=== PATIENT | female | born 1950 | race Caucasian/White ===

== ENCOUNTER → 2016-05-04 | Outpatient (CLI) | payer BC ==
[~2016-05-04] MED LIST: CALC500C3 PO; CONJ0.3T3 PO; LAMO100T16 PO; MULT-507 PO; PROB1TAB19 PO; SYN125 PO; ZNTT/150 PO
--- NOTE | 2016-05-04 08:41 | Discharge Instructions ---
Discharge Instructions Procedure Procedure Date: May 04, 2016. Reason for visit: Left Calcs. Discharge Discharge Date: May 04, 2016. Discharge Diagnosis: status post breast biopsy Instructions Activity Recommendations: Additional Limitations (see below) Return to School/Work: no limitations Recommended Home Diet: No Limitations Provider Instructions: ACTIVITY RECOMMENDATIONS: * No lifting, pushing, pulling or exercising the affected side for three days. RETURN TO SCHOOL/WORK: * You may return to work/school after the procedure, but do not perform any strenuous activities for 24 to 48 hours. MEDICATIONS: * Tylenol (two 325 mg) every four to six hours if needed for mild pain (if not allergic to Tylenol). DIET: * Resume previous diet. SPECIAL CARE INSTRUCTIONS: * Keep biopsy site dry for 24 hours. May shower after 24 hours, but do not soak (bathe) incision. * May remove Tegaderm (plastic patch) tomorrow AFTER showering. * Leave the steri-strips on for one week. Allow the steri-strips to fall off by themselves. If not off after one week, you may remove them. You may place a Bandaid crosswise over the strips, if desired. * Apply ice 10 minutes on and 10 minutes off as needed. * Wear a bra at bedtime to sleep more comfortably for 2-3 days. * Your referring physician should have the results after approximately 5 to 7 business days. * Call for unusual bleeding, fever, drainage, etc or if you have any questions call during normal business hours or after hours call Dr Guthrie, . FOLLOW UP VISIT: Follow-up with Referring Physician as scheduled. Allergies Coded Allergies: Ether (Verified Allergy, Severe, BLEEDING, 02/17/14) Penicillins (Unverified Allergy, Mild, UNKNOWN, 02/17/14) Alyse Mckeon Recommendations: Call your doctor if: * Temperature above 101 degrees * Pain not relieved by pain medicine ordered * There is increased drainage or redness from any incision * You have any unanswered questions or concerns. Your Doctors Instructions noted above were prepared by provider Maureen Guthrie. Patient Signature Section: Patient Instructions Signature Page Trina Lis Patient (or Guardian) Signature/Date: I have read and understand the instructions given to me by my caregivers. Caregiver/RN/Doctor Signature/Date: The above-named patient and/or guardian has received patient instructions on this date. + Original Patient Signature Page (only) stays with chart. Please make copy for patient.
--- NOTE | 2016-05-04 12:39 | MAMMOGRAPHY REPORT ---
THIS REPORT HAS BEEN AMENDED. STEREOTACTIC GUIDED BIOPSY LEFT BREAST: 05/04/2016 CLINICAL HISTORY: Left lower inner quadrant calcifications. PATIENT CONSENT: The procedure, risks, benefits, and alternatives of stereotactic biopsy with clip p lacement were discussed with the patient, and verbal and written consent was obtained. A timeout wa s performed immediately prior to the procedure. PROCEDURE DESCRIPTION: With stereotactic guidance, aseptic technique, and lidocaine as a local anest hetic (1% lidocaine to anesthetize the skin and 1% lidocaine with epinephrine to anesthetize the jessy per tissues), the area of concern in the left lower inner quadrant (site A) was sampled multiple aki es with a 9-gauge vacuum-assisted biopsy needle (Leanplum). The path of approach was caudocrania l. The specimen radiograph demonstrates calcifications to be present in the samples. A metallic ma rker clip was placed at the biopsy site. This was confirmed on postprocedure mammograms. Direct pr essure was applied at the biopsy site and hemostasis was readily achieved. The patient tolerated th e procedure without complication. She was given wound care instructions. COMPARISON: Comparison is made to exams dated: 04/26/2016 mammogram, 04/14/2015 mammogram, 4 mammogram, 04/04/2013 mammogram, and 03/29/2012 mammogram - [facility]. IMPRESSION: STEREOTACTIC GUIDED BIOPSY Stereotactic biopsy of indeterminate calcifications in the left lower inner quadrant (labeled site " A"), with clip placement. The patient will receive pathology results from her referring physician. Maureen Guthrie M.D. ah/:05/04/2016 09:01:19 Weapons Engineer: Queta Mckenzie, [facility] AMENDMENT: 05/11/2016 Maureen Guthrie M.D. The pathology from stereotactic biopsy 2 of the left breast was reviewed on 05/11/2016. The patholo gy of the left lower inner quadrant calcifications yielded atypical ductal hyperplasia. The patholo gy from the left 3:00 calcifications yielded flat epithelial atypia and atypical lobular hyperplasia . Given the presence of atypia on both specimens, surgical excision is recommended. The physician's office was called to ensure faxed results were received.
--- NOTE | 2016-05-04 12:39 | MAMMOGRAPHY REPORT ---
UNILATERAL LEFT DIGITAL DIAGNOSTIC MAMMOGRAM: 05/04/2016 CLINICAL HISTORY: Status post stereotactic biopsy of left lower inner quadrant and left 3:00 calcifi cations. TECHNIQUE: Postprocedural left CC and LM views were obtained. COMPARISON: Comparison is made to exams dated: 04/26/2016 mammogram, 04/18/2016 mammogram, 04/14/20 15 mammogram, 04/11/2014 mammogram, 04/04/2013 mammogram, and 03/29/2012 mammogram - [facility]. BREAST COMPOSITION: The tissue of the left breast is heterogeneously dense, which may obscure small masses. FINDINGS: A new biopsy marker clip is seen within the left 9:00 breast posteriorly, and a new biops y marker clip is seen within the left 3:00 breast, at the 2 sites of biopsied calcifications. No si gnificant postbiopsy hematoma is seen. IMPRESSION: POST PROCEDURE IMAGING FOR MARKER PLACEMENT New biopsy marker clips status post left breast stereotactic biopsy 2. Pathology results are pendi ng. Approximately 10% of breast cancers are not detected with mammography. A negative mammographic repor t should not delay biopsy if a clinically suggestive mass is present. Maureen Guthrie M.D. /:05/04/2016 09:19:38 Wax Pattern Repairer: Queta Mckenzie, [facility] BI-RADS Code: Post Procedure Imaging For Marker Placement
--- NOTE | 2016-05-04 12:39 | MAMMOGRAPHY REPORT ---
THIS REPORT HAS BEEN AMENDED. STEREOTACTIC GUIDED BIOPSY LEFT BREAST: 05/04/2016 CLINICAL HISTORY: Indeterminate calcifications in the left 3:00 breast. PATIENT CONSENT: The procedure, risks, benefits, and alternatives of stereotactic biopsy with clip p lacement were discussed with the patient, and verbal and written consent was obtained. A timeout wa s performed immediately prior to the procedure. PROCEDURE DESCRIPTION: With stereotactic guidance, aseptic technique, and lidocaine as a local anest hetic (1% lidocaine to anesthetize the skin and 1% lidocaine with epinephrine to anesthetize the jessy per tissues), the area of concern in the left 3:00 breast (site B) was sampled multiple times with a 9-gauge vacuum-assisted biopsy needle (Chango). The path of approach was lateral. The specim en radiograph demonstrates calcifications to be present in the samples. A metallic marker clip was placed at the biopsy site. This was confirmed on postprocedure mammograms. Direct pressure was elliot lied at the biopsy site and hemostasis was readily achieved. The patient tolerated the procedure wi thout complication. She was given wound care instructions. COMPARISON: Comparison is made to exams dated: 04/26/2016 mammogram, 04/14/2015 mammogram, and 03/31 mammogram - [facility]. IMPRESSION: STEREOTACTIC GUIDED BIOPSY Stereotactic biopsy of indeterminate calcifications in the left 3:00 breast (labeled as site B), wit h clip placement. The patient will receive pathology results from her referring physician. Maureen Guthrie M.D. ah/:05/04/2016 09:02:19 Billboard Erector Helper: Queta Mckenzie, [facility] AMENDMENT: 05/11/2016 Maureen Guthrie M.D. The pathology from stereotactic biopsy 2 of the left breast was reviewed on 05/11/2016. The patholo gy of the left lower inner quadrant calcifications yielded atypical ductal hyperplasia. The patholo gy from the left 3:00 calcifications yielded flat epithelial atypia and atypical lobular hyperplasia . Given the presence of atypia on both specimens, surgical excision is recommended. The physician's office was called to ensure faxed results were received.
== END | disposition home or self-care (01) ==
LOC: C.MAMM 07:57
PROVIDERS: ATTEND Family Medicine
DX: R92.1 Mammographic calcification found on diagnostic imaging of breast (principal); N60.92 Unspecified benign mammary dysplasia of left breast

== ENCOUNTER → 2016-11-09 | Outpatient (CLI) | payer BC ==
--- NOTE | 2016-11-09 15:38 | MAMMOGRAPHY REPORT ---
UNILATERAL LEFT DIGITAL DIAGNOSTIC MAMMOGRAM TOMOSYNTHESIS WITH CAD AND TARGETED LEFT ULTRASOUND: 10/29 CLINICAL HISTORY: History of stereotactic biopsy of 2 areas of calcification in the left breast which yielded atypia, status post surgical excision May 2016. The patient presents for short interval follow-up. She reports some intermittent tenderness at her surgical bed laterally. TECHNIQUE: Breast tomosynthesis in addition to standard 2D mammography was performed. Current study was also evaluated with a Computer Aided Detection (CAD) system. Left CC and MLO 2-D and tomosynthes is images and spot magnification left CC and ML views were obtained. COMPARISON: Comparison is made to exams dated: 04/26/2016 mammogram, 04/18/2016 mammogram, 5 mammogram, 04/11/2014 ultrasound, 04/11/2014 mammogram, and 04/08/2014 mammogram - [facility]. BREAST COMPOSITION: There are scattered areas of fibroglandular density in the left breast. FINDINGS: There are new post surgical changes in the left upper outer quadrant and left lower inner quadrant from surgical excisions for left breast atypia. There is new density, architectural distort ion, and a fat density mass consistent with fat necrosis at the left upper outer quadrant surgical be d. There is a surgical clip at the left lower inner surgical bed. Spot magnification views demonstr ate 2 punctate calcifications near the surgical clips in the left lower inner quadrant. Additionally , there is a small 2 mm cluster of predominantly punctate calcifications within the left upper inner quadrant medial to the surgical bed; in retrospect, the cluster appears stable on spot magnification views dated 04/26/2016, and may also be stable compared to the MLO view from the 2014 exam, and is th erefore probably benign. A few other possible scattered faint calcifications are seen within the lef t lateral breast on the magnified views. There is a round circumscribed 4 mm benign-appearing mass s een within the left lateral breast anterior to the surgical bed, for which ultrasound was performed. The remainder of the left breast is stable compared to prior exams, without suspicious masses, calci fications, or areas of architectural distortion noted. Targeted ultrasound was performed of the left lateral breast in the region of the mammographic mass. In the left breast at 1:00, 3 cm from the nipple, there is a round anechoic circumscribed 3 x 3 mm m ass consistent with a benign simple cyst. This corresponds with the mammographic mass. In the left breast at 3:00 periareolar region at the surgical bed, there is an anechoic 1.6 x 1.2 x 0.9 cm mass, which corresponds with the fat density mammographic mass and is consistent with fat necrosis. IMPRESSION: ACR-BI-RADS CATEGORY 3: PROBABLY BENIGN, TARGETED ULTRASOUND ACR-BI-RADS CATEGORY 3: PRO BABLY BENIGN New post surgical changes in the left breast status post surgical excision [address] atypia. [address] clus ter of calcifications in the left upper inner quadrant is stable compared to the March 2016 exam a nd likely the 2015 exam and is probably benign. Additionally, there are 2 punctate calcifications se en at the left lower inner quadrant surgical bed, and a few possible scattered faint calcifications i n the left lateral breast. Recommend bilateral diagnostic tomosynthesis mammograms in 6 months, to r eevaluate the left breast postsurgical changes and calcifications and for routine mammography of the right breast. The patient has been verbally notified of the results. Approximately 10% of breast cancers are not detected with mammography. A negative mammographic report should not delay biopsy if a clinically suggestive mass is present. Maureen Guthrie M.D. ah/:11/09/2016 12:11:43 Timber Girdler: Flora GUTIERREZ(R)(M), [facility] letter sent: Follow Up Recommended 3 BI-RADS Code: ACR-BI-RADS Category 3: Probably Benign Ultrasound BI-RADS: ACR-BI-RADS Category 3: Pr obably Benign
== END | disposition home or self-care (01) ==
LOC: C.MAMM 11:24
PROVIDERS: ATTEND Internal Medicine
DX: R92.2 Inconclusive mammogram (principal); R92.1 Mammographic calcification found on diagnostic imaging of breast

== ENCOUNTER → 2017-05-15 | Outpatient (CLI) | payer BC ==
--- NOTE | 2017-05-15 14:48 | MAMMOGRAPHY REPORT ---
BILATERAL DIGITAL DIAGNOSTIC MAMMOGRAM TOMOSYNTHESIS WITH CAD: 05/15/2017 CLINICAL HISTORY: 67-year-old woman with a history of biopsy-proven atypical ductal hyperplasia and a typical lobular hyperplasia in the left breast, status post surgical excisional biopsy in both the me dial and lateral aspect of the breast. Reassess a new grouping of punctate microcalcifications in th e superior left breast and also annual mammographic evaluation of the right breast. TECHNIQUE: Bilateral CC and MLO 2-D and tomosynthesis images, spot magnification left CC and ML views were obtained. Current study was also evaluated with a Computer Aided Detection (CAD) system. COMPARISON: Comparison is made to exams dated: 11/09/2016 ultrasound, 11/09/2016 mammogram, 05/04/2016 s tereotactic biopsy, 05/04/2016 mammogram, 04/18/2016 mammogram, and 04/04/2013 mammogram - [facility]. BREAST COMPOSITION: The tissue of both breasts is heterogeneously dense, which may obscure small mas ses. FINDINGS: There is decreasing nodularity of the right breast, with a few persistent circumscribed sub centimeter round and oval masses remaining in the right breast. These findings are most compatible w ith fluctuating cysts/fibrocystic changes. No suspicious spiculated, irregular or angular mass, foca l area of architectural distortion, new asymmetry or suspicious microcalcifications are identified. There is expected architectural distortion in the upper outer anterior left breast, and also in the l ower inner posterior left breast, with a linear surgical clip remaining in place. These areas of arc hitectural distortion represent prior excisional biopsies for the atypical ductal and atypical lobula r hyperplasia diagnosed at needle biopsy. Near the linear surgical clip in the lower inner posterior left breast, there are 2 punctate microcalcifications, which are stable comparing to the spot magnif ication views obtained on 11/09/2016. On the spot magnification ML view in the superior left breast, there is a grouping of faint punctate microcalcifications measuring approximately 3 mm, thought to p roject medially based on the spot magnification cc views. Although this cluster of faint punctate mi crocalcifications appears similar to the spot magnification views obtained on 11/09/2016, long-term s tability is not demonstrated mammographically. We discussed options of continued follow-up of these microcalcifications versus definitive characterization with stereotactic biopsy. Initially we were g oing to continue following the calcifications but during scheduling the patient decided she felt more comparable with a stereotactic biopsy. IMPRESSION: ACR BI-RADS CATEGORY 4: SUSPICIOUS 1. Left breast stereotactic guided biopsy is recommended for a 3 mm cluster of faint punctate microc alcifications in the superior left breast. 2. Pending benign pathology results would continue follow-up spot magnification views in the lower i nner quadrant of the left breast to ensure stability of the 2 punctate microcalcifications located ne ar the linear surgical clip. 3. Stable postsurgical changes in the lateral left breast. No other new suspicious calcifications, asymmetries or distortions are identified. 4. Decreasing nodularity throughout the right breast mammographically, most likely representing fluct uating/decreasing cysts. No mammographic evidence of malignancy in the right breast. These results and recommendations were discussed with the patient at the time of the exam. She tenta tively scheduled a left breast stereotactic biopsy prior to leaving our department. Approximately 10% of breast cancers are not detected with mammography. A negative mammographic report should not delay biopsy if a clinically suggestive mass is present. Aura Mobley M.D. ay/:05/15/2017 13:32:37 Assistant Operator: Cecy GUTIERREZ(Rafal)(Aly), [facility] letter sent: Abnormal 4/5 BI-RADS Code: ACR BI-RADS Category 4: Suspicious
== END | disposition home or self-care (01) ==
LOC: C.MAMM 10:59
PROVIDERS: ATTEND Internal Medicine
DX: R92.0 Mammographic microcalcification found on diagnostic imaging of breast (principal)

== ENCOUNTER → 2017-05-19 | Outpatient (CLI) | payer BC | END | disposition home or self-care (01) | LOC: C.MAMM 12:30 | DX: R92.1 Mammographic calcification found on diagnostic imaging of breast (principal) ==

== ENCOUNTER 2021-01-06 12:40 | Inpatient (IN) ==
[2021-01-06] MEDS ORDERED: SODIUM CHLORIDE 0.9% 1000ML 1,000 ML IV STA (12:53)
[2021-01-06] MEDS ORDERED: ONDANSETRON INJ 2 MG/ML 2 ML VIAL IV STA (12:53)
[2021-01-06] MEDS: fentaNYL citrate 100 MCG/2 ML VIAL IV PRN ×4 (13:02→15:46)
--- NOTE | 2021-01-06 13:10 | Emergency Department Note ---
Impression & Plan Closed fracture of maxillary bone, Colles' fracture, Contusion of hip, Contusion of face, Dental trauma ED Provider Note NAME: DRAKE CHILD AGE: 70 SEX: F : 1950 ARRIVES VIA: Ambulance INFORMANT: Patient, ED PROVIDER(S): Skinny Gandhi DO CHIEF COMPLAINT: Fall HPI: The patient is a 70-year-old female who presented to the emergency department after a fall. The patient states that she was walking around her house when she tripped and fell. She landed on her left side. The patient sustained an injury to her left upper extremity as well as her left hip. She was unable to stand. She presented to the emergency department via BLS. The left upper extremity was immobilized. The patient denies having any headache or loss of consciousness. The patient denies having any neck or back pain. She denies having any abdominal pain. She states she was in her normal state of health until this injury occurred after a trip and fall. The patient states her pain is moderate to severe and worsens with any movement of her left upper extremity. She also complains of left wrist left elbow left forearm and left knee pain. ROS: See above HPI for pertinent positives & negatives. A total of 10 systems reviewed and were otherwise negative. PAST MEDICAL HISTORY: See Below PAST SURGICAL HISTORY: See Below FAMILY HISTORY: See Below SOCIAL HISTORY: See Below HOME MEDICATIONS: See Below ALLERGIES: See Below VITALS: See Below PHYSICAL EXAMINATION: GENERAL: The patient is awake and alert. The patient is very anxious. She is screaming out in pain. EYES: The conjunctivae are clear. The pupils are round and reactive. EARS, NOSE, MOUTH AND THROAT: The nose is without any evidence of any deformity. There was swelling over the left maxillary bone with a small bruise. The patient had a small intraoral laceration on the upper lip. There is no active bleeding. The upper denture showed some fracturing of the teeth on the left upper. There is no crepitus over the face. NECK: The neck is nontender and supple. RESPIRATORY: Normal respiratory effort is noted there is no evidence of wheezing rhonchi or rales CARDIOVASCULAR: Regular rate and rhythm noted there no murmurs rubs or gallops normal S1 normal S2. GASTROINTESTINAL: The abdomen is soft. Abdomen is nontender. PELVIS: The Pelvis is stable. No tenderness to palpation is noted. BACK: No midline tenderness or or step-off noted range of motion in flexion extension as well as rotation no signs of muscle spasm noted MUSCULOSKELETAL/EXTREMITIES: There is no deformity of either lower extremity. There is pain with range of motion testing in the left hip. There is pain with range of motion of the left knee. There was a small bruise over the left knee. There is significant pain and deformity noted of the left humerus. There is ecchymosis over the left mid humerus. There is deformity of the left wrist. There is tenderness to palpation over the left hand left elbow left wrist and left humerus. The shoulder does not appear to be involved but does have pain with range of motion testing. SKIN: There is no obvious evidence of any rash. There are no petechiae, pallor o r cyanosis noted. NEUROLOGIC: Patient is awake alert and oriented x3 strength is symmetric patellar reflexes are 2+ bilaterally MEDICAL DECISION MAKING: The patient is a 70-year-old female who presented to the emergency department for an evaluation of left upper extremity and left lower extremity injuries. The patient had a trip and fall while she was at her home. She presented via ambulance with severe pain in her left upper extremity. She did have very significant pain over the humerus with a bruise but radiographic studies showed no fracture. She was found have a Colles' fracture on x-ray. The patient was treated with IV pain medication as well as a splint in the emergency department. She was reevaluated multiple times. I discussed the patient's laboratory and radiographic studies with her. CAT scan appear to be consistent with a possible small cerebral contusion. I discussed her case with the on-call orthopedic group as well as the on-call [facility] hospitalist group. The patient may require surgical intervention on her wrist and was felt to be a good candidate for observation to repeat the CAT scan of her head. The patient was agreeable with this plan. Triage Nursing notes reviewed. Prior medical records reviewed Vital Signs: reviewed and remarkable for elevated blood pressure. Differential diagnosis: Fracture, dislocation, contusion, intra-abdominal, pneumothorax, intrathoracic, intracranial, neurologic, compartment syndrome, rhabdomyolysis, as well as other pathologies. ER treatment provided: See below Diagnostics interpreted by me: ECG: none Cardiac Monitoring: An order was placed for continuous cardiac monitoring. The monitor shows a rate of 89 bpm with sinus rhythm. Laboratory studies: As stated above and show below. Imaging studies: See below Consultation(s): 1650: I discussed this case with Chavez Guillory who is on-call for orthopedics. He will evaluate the x-rays. 1735: I discussed this case with Maryam who is on-call for the [facility] hospitalist group. Past Med/Surg History Medical History (Updated 01/06/21 @ 17:40 by Rosa Farmer PA-C) Abnormal findings on diagnostic imaging of gall bladder Abnormal findings on diagnostic imaging of gall bladder Pyelonephritis Seizure disorder Family History Other GERD (gastroesophageal reflux disease) Social History Smoking Status: Former smoker Feels Safe at Home: Yes Allergies Allergies Allergy/AdvReac Type Severity Reaction Status Date / Time ether Allergy Severe BLEEDING Verified 01/06/21 16:18 Penicillins Allergy Mild UNKNOWN-HAPPENED Verified 01/06/21 16:18 A CHILD Home Meds Home Medications Medication Instructions Recorded Confirmed Lactobacillus acidophilus 10 1 cap PO Q OTHER DAY 01/26/18 01/06/21 billion cell capsule (Probiotic) calcium carbonate 200 mg calcium 200 mg PO HS 01/26/18 01/06/21 (500 mg) chewable tablet (Tums) lamotrigine 100 mg tablet 100 mg PO BID 01/26/18 01/06/21 (Lamictal) levothyroxine 100 mcg tablet 100 mcg PO DAILY 01/26/18 01/06/21 cyclosporine 0.05 % eye drops in a 1 drp OPB Q12H 01/06/21 01/06/21 dropperette (Restasis) famotidine 20 mg tablet (Pepcid AC) 20 mg PO BID 01/06/21 01/06/21 Results & Data (ED) Vital Signs Vital Signs - 24 hr 01/06/21 12:44 01/06/21 13:00 01/06/21 13:04 Temperature 36.8 C Temperature Source Oral Pulse Rate 87 77 74 Pulse Rate from SpO2 Sensor 78 Respiratory Rate 22 29 H 20 Blood Pressure 134/78 139/80 Blood Pressure Mean 96 99 Pulse Oximetry 98 96 95 Oxygen Delivery Method Room Air Room Air Room Air Oxygen Flow Rate Sepsis Recent Fever Within 48 Hours No Sepsis New/Unexplained Change in Mental Status No Sepsis Action Taken by Nursing No Action Required 01/06/21 13:30 01/06/21 14:00 01/06/21 15:02 Temperature Temperature Source Pulse Rate 79 82 74 Pulse Rate from SpO2 Sensor 79 82 74 Respiratory Rate 23 23 21 Blood Pressure 132/87 135/82 Blood Pressure Mean 102 99 Pulse Oximetry 89 L 100 99 Oxygen Delivery Method Room Air Room Air Room Air Oxygen Flow Rate Sepsis Recent Fever Within 48 Hours Sepsis New/Unexplained Change in Mental Status Sepsis Action Taken by Nursing 01/06/21 15:30 01/06/21 16:00 01/06/21 16:44 Temperature Temperature Source Pulse Rate 74 82 89 Pulse Rate from SpO2 Sensor 76 82 89 Respiratory Rate 19 17 23 Blood Pressure 138/87 141/84 H Blood Pressure Mean 104 103 Pulse Oximetry 99 98 96 Oxygen Delivery Method Nasal Cannula Nasal Cannula Nasal Cannula Oxygen Flow Rate 2 2 2 Sepsis Recent Fever Within 48 Hours Sepsis New/Unexplained Change in Mental Status Sepsis Action Taken by Jail Medications Current Medication List: was personally reviewed by me Laboratory Data Attestation: I reviewed the patient's lab results. Result diagrams: 01/06/21 13:00 01/06/21 13:00 Lab Results 01/06/21 01/06/21 01/06/21 Range/Units 13:00 13:00 13:00 WBC 8.30 (4.8-10.8) K/uL RBC 4.59 (4.2-5.4) M/uL Hgb 14.3 (12.0-16.0) g/dL Hct 43.1 (37-47) % MCV 93.9 (80-100) fL MCH 31.2 (25-34) pg MCHC 33.2 (32-36) g/dL RDW Std Deviation 47.5 H (36.4-46.3) fL RDW Coeff of Ashutosh 13.8 (11.5-14.5) % Plt Count 312 (130-400) K/uL MPV 12.3 H (7.4-10.4) fL Immature Gran % (Auto) 0.2 % Neut % (Auto) 62.9 % Lymph % (Auto) 28.8 % [place] % (Auto) 7.7 % Eos % (Auto) 0.2 % Baso % (Auto) 0.2 % Neut # (Auto) 5.21 (1.4-6.5) K/uL Lymph # (Auto) 2.39 (1.2-3.4) K/uL [place] # (Auto) 0.64 H (0.11-0.59) K/uL Eos # (Auto) 0.02 (0-0.5) K/uL Baso # (Auto) 0.02 (0-0.2) K/uL Immature Gran # (Auto) 0.02 (0.00-0.02) K/uL Sodium 139 (136-145) mmol/L Potassium 3.6 (3.5-5.1) mmol/L Chloride 107 (98-107) mmol/L Carbon Dioxide 20 L (21-32) mmol/L Anion Gap 12.0 H (3-11) BUN 16 (7-18) mg/dl Creatinine 1.28 H (0.6-1.2) mg/dl Est Cr Clr Drug Dosing 34.8 ml/min Est GFR ( Amer) 48.4 ml/min Est GFR (Non-Af Amer) 41.7 ml/min BUN/Creatinine Ratio 12.3 (10-20) Glucose 149 H (70-99) mg/dl Calcium 10.0 (8.5-10.1) mg/dl Total Bilirubin 0.4 (0.2-1) mg/dl AST 19 (15-37) U/L ALT 18 (12-78) U/L Alkaline Phosphatase 105 (45-117) U/L Total Protein 8.1 (6.4-8.2) gm/dl Albumin 3.8 (3.4-5.0) gm/dl Globulin 4.3 H (2.5-4.0) gm/dl Albumin/Globulin Ratio 0.9 (0.9-2) Lipase 70 L (73-393) U/L Urine Color Urine Appearance (Clear) Urine pH (4.5-7.5) Ur Specific [place] (1.000-1.030) Urine Protein (Negative) Urine Glucose (UA) (Negative) Urine Ketones (Negative) Urine Blood (Negative) Urine Nitrite (Negative) Urine Bilirubin (Negative) Urine Urobilinogen (Negative) Ur Leukocyte Esterase (Negative) Urine WBC (Auto) (0-5) /hpf Urine RBC (Auto) (0-4) /hpf U Hyaline Cast (Auto) (0-5) /lpf U Epithel Cells (Auto) (0-5) /lpf Urine Bacteria (Auto) (Negative) Phenytoin 1.1 L (10-20) mcg/ml COVID-19 Eval Order 01/06/21 01/06/21 Range/Units 17:19 17:45 WBC (4.8-10.8) K/uL RBC (4.2-5.4) M/uL Hgb (12.0-16.0) g/dL Hct (37-47) % MCV (80-100) fL MCH (25-34) pg MCHC (32-36) g/dL RDW Std Deviation (36.4-46.3) fL RDW Coeff of Ashutosh (11.5-14.5) % Plt Count (130-400) K/uL MPV (7.4-10.4) fL Immature Gran % (Auto) % Neut % (Auto) % Lymph % (Auto) % [place] % (Auto) % Eos % (Auto) % Baso % (Auto) % Neut # (Auto) (1.4-6.5) K/uL Lymph # (Auto) (1.2-3.4) K/uL [place] # (Auto) (0.11-0.59) K/uL Eos # (Auto) (0-0.5) K/uL Baso # (Auto) (0-0.2) K/uL Immature Gran # (Auto) (0.00-0.02) K/uL Sodium (136-145) mmol/L Potassium (3.5-5.1) mmol/L Chloride (98-107) mmol/L Carbon Dioxide (21-32) mmol/L Anion Gap (3-11) BUN (7-18) mg/dl Creatinine (0.6-1.2) mg/dl Est Cr Clr Drug Dosing ml/min Est GFR ( Amer) ml/min Est GFR (Non-Af Amer) ml/min BUN/Creatinine Ratio (10-20) Glucose (70-99) mg/dl Calcium (8.5-10.1) mg/dl Total Bilirubin (0.2-1) mg/dl AST (15-37) U/L ALT (12-78) U/L Alkaline Phosphatase (45-117) U/L Total Protein (6.4-8.2) gm/dl Albumin (3.4-5.0) gm/dl Globulin (2.5-4.0) gm/dl Albumin/Globulin Ratio (0.9-2) Lipase (73-393) U/L Urine Color Yellow Urine Appearance Clear (Clear) Urine pH 7.5 (4.5-7.5) Ur Specific [place] 1.010 (1.000-1.030) Urine Protein Negative (Negative) Urine Glucose (UA) Negative (Negative) Urine Ketones Negative (Negative) Urine Blood Negative (Negative) Urine Nitrite Negative (Negative) Urine Bilirubin Negative (Negative) Urine Urobilinogen Negative (Negative) Ur Leukocyte Esterase 2+ H (Negative) Urine WBC (Auto) 5-10 H (0-5) /hpf Urine RBC (Auto) 0-4 (0-4) /hpf U Hyaline Cast (Auto) 0 (0-5) /lpf U Epithel Cells (Auto) 20-30 H (0-5) /lpf Urine Bacteria (Auto) Negative (Negative) Phenytoin (10-20) mcg/ml COVID-19 Eval Order Covid19 at [facility] Administered Medications Acetaminophen (Acetaminophen 500 Mg Tab) 1,000 mg PO Q8H KEKE Stop: 02/05/21 17:46 Last Admin: 01/06/21 17:55 Dose: 1,000 mg Documented by: [id number] Fentanyl Citrate (Fentanyl Citrate 100 Mcg/2 Ml Vial) 50 mcg IV Q15M PRN PRN Reason: Pain Stop: 01/20/21 12:52 Last Admin: 01/06/21 15:46 Dose: 50 mcg Documented by: [id number] Admin: 01/06/21 14:24 Dose: 50 mcg Documented by: [id number] Admin: 01/06/21 13:23 Dose: 50 mcg Documented by: [id number] Admin: 01/06/21 13:02 Dose: 50 mcg Documented by: [id number] Discontinued Medications Sodium Chloride (Nss 1000ml) 1,000 mls @ 999 mls/hr IV .Q1H1M STA Stop: 01/06/21 13:53 Last Infusion: 01/06/21 14:02 Dose: 0 mls/hr Documented by: [id number] Admin: 01/06/21 13:01 Dose: 999 mls/hr Documented by: [id number] Cefazolin Sodium (Ancef 2000mg) 2,000 mg in 15 mls @ 3.75 mls/min IV NOW STA Stop: 01/06/21 17:37 Last Admin: 01/06/21 17:55 Dose: 3.75 mls/min Documented by: [id number] Ondansetron HCl (Ondansetron Inj 2 Mg/Ml 2 Ml Vial) 4 mg IV NOW STA Stop: 01/06/21 12:54 Last Admin: 01/06/21 13:01 Dose: 4 mg Documented by: [id number] Imaging Data Radiologist's Impression: Chest X-Ray 01/06/21 12:53 SINGLE VIEW CHEST CLINICAL HISTORY: Fall. FINDINGS: An AP, portable, supine chest radiograph is compared to study dated 01/25/2018. Correlation is made with chest CT dated 02/10/2018. The examination is degraded by portable technique and patient rotation. The cardiomediastinal silhouette is unremarkable. Chronic interstitial thickening is similar to previous. There is mild bibasilar scarring/atelectasis. No airspace consolidation or large pleural effusion is identified. No pneumothorax is seen. The skeletal structures are osteopenic. The bony thorax is grossly intact. IMPRESSION: No acute cardiopulmonary abnormality. ACT 112: Negative or not required by law. Electronically signed by: Wai Jules M.D. 01/06/2021 3:19 PM Elbow X-Ray 01/06/21 12:53 XR elbow LT min 3V routine CLINICAL HISTORY: Left elbow pain following fall. COMPARISON: Left elbow radiographs November 06, 2017. FINDINGS: Alignment of the left elbow is anatomic. There is no evidence for a joint effusion. There is no acute fracture. IMPRESSION: No acute fracture or joint effusion of the left elbow. ACT 112: Negative or not required by law. Electronically signed by: Landon Horne M.D. 01/06/2021 3:19 PM Hand X-Ray 01/06/21 12:53 XR hand LT min 3V routine CLINICAL HISTORY: fall COMPARISON: None FINDINGS: Carpal bones are intact. Note is made of an acute moderately displaced significantly comminuted distal left radial fracture with dorsal tilt of the distal component. Intra-articular extension of fracture is noted. Left wr ist soft tissue swelling is present. IMPRESSION: Acute moderately displaced significantly comminuted and angulated distal left radial fracture with intra-articular extension. ACT 112: Negative or not required by law. Electronically signed by: Landon Horne M.D. 01/06/2021 3:27 PM Hip/Pelvis X-Ray 01/06/21 12:53 XR hip LT 2V w pelvis CLINICAL HISTORY: fall COMPARISON: None. DISCUSSION: No acute fracture or dislocation seen. No blastic or lytic lesions are seen. Mild degenerative changes of the lumbar spine. Multiple nondilated gas-filled loops of bowel are seen within lower abdomen and pelvic region IMPRESSION: No acute fracture dislocation. ACT 112: Negative or not required by law. The above report was generated using voice recognition software. It may contain grammatical, syntax or spelling errors. Electronically signed by: Yoly Baxter DO 01/06/2021 3:19 PM Humerus X-Ray 01/06/21 12:53 XR humerus LT 2V CLINICAL HISTORY: fall COMPARISON: November 06, 2017 DISCUSSION: No definite acute fracture dislocation seen. No blastic or lytic lesions are seen. IMPRESSION: Negative study. ACT 112: Negative or not required by law. The above report was generated using voice recognition software. It may contain grammatical, syntax or spelling errors. Electronically signed by: Yoly Baxter DO 01/06/2021 3:20 PM Knee X-Ray 01/06/21 12:53 LEFT KNEE 2 VIEWS CLINICAL HISTORY: Fall with left knee pain. FINDINGS: AP and crosstable lateral views of the left knee are obtained. No prior studies are available for comparison at the time of dictation. The skeletal structures are osteopenic. No fracture is seen. There is mild tricompartmental degenerative joint space narrowing. There is no joint effusion. The overlying soft tissues are normal as imaged. There is mild atherosclerotic calcification of the popliteal artery. IMPRESSION: No acute bony abnormality is identified. Electronically signed by: Wai Jules M.D. 01/06/2021 3:21 PM Wrist X-Ray 01/06/21 12:53 XR wrist LT min 3V routine CLINICAL HISTORY: fall COMPARISON: None. DISCUSSION: There is comminuted displaced fracture of the distal radius associated with volar apex angulation and shortening. Positive ulnar variance is seen on this exam. There is possible extension of the fracture line to the radiocarpal joint. Mild soft tissue edema is seen. IMPRESSION: As above. ACT 112: Negative or not required by law. The above report was generated using voice recognition software. It may contain grammatical, syntax or spelling errors. Electronically signed by: Yoly Baxter DO 01/06/2021 3:[address] 01/06/21 15:58 CT SCAN OF THE CERVICAL SPINE CLINICAL HISTORY: Fall. COMPARISON STUDY: No priors. TECHNIQUE: CT scan of the cervical spine is performed from the skull base to the upper thoracic spine. Images are reviewed in the axial, sagittal, and coronal planes. IV contrast was not administered for this examination. A dose lowering technique was utilized adhering to the principles of ALARA. CT DOSE: 396.85 mGycm FINDINGS: Skeletal structures: The skeletal structures are osteopenic. There is no evidence of fracture or subluxation involving the cervical spine. Vertebral body height and alignment are maintained. Tiny anterior osteophytes are seen thr oughout. The odontoid process and lateral masses are intact. The atlantoaxial articulation is preserved noting productive degenerative change. The spinous processes appear intact. Intervertebral discs: The disc spaces are well maintained. Central canal: Widely patent. Soft tissues: The prevertebral and paraspinous soft tissues are within normal limits. There is atherosclerotic calcification of the carotid bulbs. Calvarium: The visualized calvarium at the skull base appears intact. Brain parenchyma: Partially visualized brain parenchyma at the skull base is within normal limits. Sinuses and mastoids: The visualized paranasal sinuses are clear. The mastoid air cells are well pneumatized. Lung apices: Clear as visualized. IMPRESSION: 1. There is no evidence of fracture or subluxation involving the cervical spine. 2. Osteopenia and mild spondylotic change as above. ACT 112: Negative or not required by law. Electronically signed by: Wai Jules M.D. 01/06/2021 4:[address] 01/06/21 15:[address] WITHOUT CONTRAST CLINICAL HISTORY: fall COMPARISON STUDY: None. TECHNIQUE: A maxillofacial CT was performed without IV contrast. Coronal and sagittal reformats were viewed. Automated exposure control was utilized for the study. A dose lowering technique was utilized adhering to the principles of ALARA. FINDINGS: Note is made of an acute nondisplaced left maxillary fracture which extends through the alveolar ridge of a left maxillary tooth. No additional acute fractures are noted. Alignment of the temporomandibular joints is anatomic. The orbital floors are intact. Globes are intact. There is no retrobulbar hematoma. IMPRESSION: Acute nondisplaced left maxillary fracture which extends through the alveolar ridge of a left maxillary tooth. No additional acute facial fractures. ACT 112: Negative or not required by law. Electronically signed by: Landon Horne M.D. 01/06/2021 5:[address] 01/06/21 15:[address] DOSE: 638.56 mGycm HISTORY: fall TECHNIQUE: Multiaxial CT images of the head were performed without the use of intravenous contrast. Automated exposure control was utilized for this study. A dose lowering technique was utilized adhering to the principles of ALARA. Comparison: None. Findings: The paranasal sinuses and mastoid air cells are clear. The calvarium and skull base are intact. The ventricles and sulci demonstrate mild age-related involutional changes. Is also moderate atrophy of the cerebellum, unchanged. No mass, midline shift, acute infarct. Punctate hyperdensity within the cortex of the right posterior frontal lobe on image 17. This could be artifact. A tiny cortical contusion could also have a similar appearance. Impression: Punctate hyperdensity within the cortex of the right posterior frontal lobe which could be artifact. A tiny cortical contusion could also have a similar appearance. Therefore, follow-up head CT in 24 hours is recommended to ensure ability/resolution of this finding. ACT 112: Negative or not required by law. Electronically signed by: Mumtaz Estrella M.D. 01/06/2021 4:57 PM Discharge Plan Visit Data Chief Complaint: Fall Stated Complaint: FALL, L WRIST, ARM, HIP, FOOT & BIG TOE PAIN ED Provider: Skinny Gandhi Discharge Problem: Closed fracture of maxillary bone, Colles' fracture, Contusion of hip, Contusion of face, Dental trauma Patient Disposition: Being Evaluated by Hospitalist Condition: Good Forms Stand Alone Forms: [facility] Prescriptions Prescriptions: No Action levothyroxine 100 mcg Tablet 100 mcg PO DAILY RF: 0 calcium carbonate [Tums] 200 mg calcium (500 mg) Tablet,Chewable 200 mg PO HS RF: 0 lamotrigine [Lamictal] 100 mg Tablet 100 mg PO BID RF: 0 Probiotic 10 billion cell Capsule 1 cap PO Q OTHER DAY RF: 0 famotidine [Pepcid AC] 20 mg Tablet 20 mg PO BID RF: 0 Restasis 0.05 % Dropperette 1 drp OPB Q12H RF: 0 Referrals Referrals: Gil Hamilton MD [Primary Care Provider] - Discharge Problem: Closed fracture of maxillary bone Qualifiers: Encounter type: initial encounter Laterality: left Qualified Code(s): S02.40DA - Maxillary fracture, left side, initial encounter for closed fracture Colles' fracture Qualifiers: Encounter type: initial encounter Fracture type: closed Laterality: left Qualified Code(s): S52.532A - Colles' fracture of left radius, initial encounter for closed fracture Contusion of hip Qualifiers: Encounter type: initial encounter Laterality: left Qualified Code(s): S70.02XA - Contusion of left hip, initial encounter Contusion of face Qualifiers: Encounter type: initial encounter Qualified Code(s): S00.83XA - Contusion of other part of head, initial encounter Dental trauma Qualifiers: Encounter type: initial encounter Qualified Code(s): S09.93XA - Unspecified injury of face, initial encounter
[2021-01-06 13:14] LABS: Basophils # (auto) 0.02 K/uL (0-0.2); Basophils % (auto) 0.2 %; Eosinophils # (auto) 0.02 K/uL (0-0.5); Eosinophils % (auto) 0.2 %; Hematocrit (blood only) 43.1 % (37-47); Hemoglobin 14.3 g/dL (12.0-16.0); Immature Granulocytes # (auto) 0.02 K/uL (0.00-0.02); Immature Granulocytes % (auto) 0.2 %; Lymphocytes # (auto) 2.39 K/uL (1.2-3.4); Lymphocytes % (auto) 28.8 %; Mean Corpuscular Hemoglobin 31.2 pg (25-34); Mean Corpuscular Hgb Conc 33.2 g/dL (32-36); Mean Corpuscular Volume 93.9 fL (80-100); Mean Platelet Volume 12.3 fL (7.4-10.4); Monocytes # (auto) 0.64 K/uL (0.11-0.59); Monocytes % (auto) 7.7 %; Neutrophils # (auto) 5.21 K/uL (1.4-6.5); Neutrophils % (auto) 62.9 %; Platelet Count 312 K/uL (130-400); RDW Coefficient of Variation 13.8 % (11.5-14.5); RDW Standard Deviation 47.5 fL (36.4-46.3); Red Blood Count 4.59 M/uL (4.2-5.4)
[2021-01-06 13:35] LABS: Albumin Level 3.8 gm/dl (3.4-5.0); BUN Creatinine Ratio 12.3 (10-20); Creatinine Clr Calc Pharmacy 34.8 ml/min; Est GFR (African American) 48.4 ml/min; Est GFR (Non-African American) 41.7 ml/min; Potassium 3.6 mmol/L (3.5-5.1)
[2021-01-06 13:38] LABS: Albumin Globulin Ratio 0.9 (0.9-2); Bilirubin,Total 0.4 mg/dl (0.2-1); Globulin 4.3 gm/dl (2.5-4.0); Total Protein 8.1 gm/dl (6.4-8.2)
--- NOTE | 2021-01-06 15:20 | XRay Report ---
XR hip LT 2V w pelvis CLINICAL HISTORY: fall COMPARISON: None. DISCUSSION: No acute fracture or dislocation seen. No blastic or lytic lesions are seen. Mild degenerative changes of the lumbar spine. Multiple nondilated gas-filled loops of bowel are seen within lower abdomen and pelvic region IMPRESSION: No acute fracture dislocation. ACT 112: Negative or not required by law. The above report was generated using voice recognition software. It may contain grammatical, syntax o r spelling errors. Electronically signed by: Yoly Baxter DO 01/06/2021 3:19 PM
--- NOTE | 2021-01-06 15:20 | XRay Report ---
SINGLE VIEW CHEST CLINICAL HISTORY: Fall. FINDINGS: An AP, portable, supine chest radiograph is compared to study dated 01/25/2018. Correlation is made with chest CT dated 02/10/2018. The examination is degraded by portable technique and patient rotation. The cardiomediastinal silhouette is unremarkable. Chronic interstitial thickening is sim ilar to previous. There is mild bibasilar scarring/atelectasis. No airspace consolidation or large pl eural effusion is identified. No pneumothorax is seen. The skeletal structures are osteopenic. The [place] thorax is grossly intact. IMPRESSION: No acute cardiopulmonary abnormality. ACT 112: Negative or not required by law. Electronically signed by: Wai Jules M.D. 01/06/2021 3:19 PM
--- NOTE | 2021-01-06 15:21 | XRay Report ---
XR humerus LT 2V CLINICAL HISTORY: fall COMPARISON: November 06, 2017 DISCUSSION: No definite acute fracture dislocation seen. No blastic or lytic lesions are seen. IMPRESSION: Negative study. ACT 112: Negative or not required by law. The above report was generated using voice recognition software. It may contain grammatical, syntax o r spelling errors. Electronically signed by: Yoly Baxter DO 01/06/2021 3:20 PM
--- NOTE | 2021-01-06 15:21 | XRay Report ---
XR elbow LT min 3V routine CLINICAL HISTORY: Left elbow pain following fall. COMPARISON: Left elbow radiographs November 06, 2017. FINDINGS: Alignment of the left elbow is anatomic. There is no evidence for a joint effusion. There is no acute fracture. IMPRESSION: No acute fracture or joint effusion of the left elbow. ACT 112: Negative or not required by law. Electronically signed by: Landon Horne M.D. 01/06/2021 3:19 PM
--- NOTE | 2021-01-06 15:22 | XRay Report ---
LEFT KNEE 2 VIEWS CLINICAL HISTORY: Fall with left knee pain. FINDINGS: AP and crosstable lateral views of the left knee are obtained. No prior studies are availab le for comparison at the time of dictation. The skeletal structures are osteopenic. No fracture is se en. There is mild tricompartmental degenerative joint space narrowing. There is no joint effusion. Th e overlying soft tissues are normal as imaged. There is mild atherosclerotic calcification of the pop liteal artery. IMPRESSION: No acute bony abnormality is identified. Electronically signed by: Wai Jules M.D. 01/06/2021 3:21 PM
--- NOTE | 2021-01-06 15:23 | XRay Report ---
XR wrist LT min 3V routine CLINICAL HISTORY: fall COMPARISON: None. DISCUSSION: There is comminuted displaced fracture of the distal radius associated with volar apex angulation and shortening. Positive ulnar variance is seen on this exam. There is possible extension of the fractur e line to the radiocarpal joint. Mild soft tissue edema is seen. IMPRESSION: As above. ACT 112: Negative or not required by law. The above report was generated using voice recognition software. It may contain grammatical, syntax o r spelling errors. Electronically signed by: Yoly Baxter DO 01/06/2021 3:22 PM
--- NOTE | 2021-01-06 15:28 | XRay Report ---
XR hand LT min 3V routine CLINICAL HISTORY: fall COMPARISON: None FINDINGS: Carpal bones are intact. Note is made of an acute moderately displaced significantly commi nuted distal left radial fracture with dorsal tilt of the distal component. Intra-articular extension of fracture is noted. Left wrist soft tissue swelling is present. IMPRESSION: Acute moderately displaced significantly comminuted and angulated distal left radial frac ture with intra-articular extension. ACT 112: Negative or not required by law. Electronically signed by: Landon Horne M.D. 01/06/2021 3:27 PM
--- NOTE | 2021-01-06 16:57 | CT Scan Report ---
CT SCAN OF THE CERVICAL SPINE CLINICAL HISTORY: Fall. COMPARISON STUDY: No priors. TECHNIQUE: CT scan of the cervical spine is performed from the skull base to the upper thoracic spine . Images are reviewed in the axial, sagittal, and coronal planes. IV contrast was not administered fo r this examination. A dose lowering technique was utilized adhering to the principles of ALARA. CT DOSE: 396.85 mGycm FINDINGS: Skeletal structures: The skeletal structures are osteopenic. There is no evidence of fracture or subl uxation involving the cervical spine. Vertebral body height and alignment are maintained. Tiny anteri or osteophytes are seen throughout. The odontoid process and lateral masses are intact. The atlantoax ial articulation is preserved noting productive degenerative change. The spinous processes appear int act. Intervertebral discs: The disc spaces are well maintained. Central canal: Widely patent. Soft tissues: The prevertebral and paraspinous soft tissues are within normal limits. There is athero sclerotic calcification of the carotid bulbs. Calvarium: The visualized calvarium at the skull base appears intact. Brain parenchyma: Partially visualized brain parenchyma at the skull base is within normal limits. Sinuses and mastoids: The visualized paranasal sinuses are clear. The mastoid air cells are well pneu matized. Lung apices: Clear as visualized. IMPRESSION: 1. There is no evidence of fracture or subluxation involving the cervical spine. 2. Osteopenia and mild spondylotic change as above. ACT 112: Negative or not required by law. Electronically signed by: Wai Jules M.D. 01/06/2021 4:56 PM
--- NOTE | 2021-01-06 16:59 | CT Scan Report ---
HEAD CT NONCONTRAST CT DOSE: 638.56 mGycm HISTORY: fall TECHNIQUE: Multiaxial CT images of the head were performed without the use of intravenous contrast. A utomated exposure control was utilized for this study. A dose lowering technique was utilized adheri ng to the principles of ALARA. Comparison: None. Findings: The paranasal sinuses and mastoid air cells are clear. The calvarium and skull base are int act. The ventricles and sulci demonstrate mild age-related involutional changes. Is also moderate atr ophy of the cerebellum, unchanged. No mass, midline shift, acute infarct. Punctate hyperdensity withi n the cortex of the right posterior frontal lobe on image 17. This could be artifact. A tiny cortical contusion could also have a similar appearance. Impression: Punctate hyperdensity within the cortex of the right posterior frontal lobe which could be artifact. A tiny cortical contusion could also have a similar appearance. Therefore, follow-up head CT in 24 ho urs is recommended to ensure ability/resolution of this finding. ACT 112: Negative or not required by law. Electronically signed by: Mumtaz Estrella M.D. 01/06/2021 4:57 PM
--- NOTE | 2021-01-06 17:01 | CT Scan Report ---
MAXILLOFACIAL CT WITHOUT CONTRAST CLINICAL HISTORY: fall COMPARISON STUDY: None. TECHNIQUE: A maxillofacial CT was performed without IV contrast. Coronal and sagittal reformats were viewed. Automated exposure control was utilized for the study. A dose lowering technique was utiliz ed adhering to the principles of ALARA. FINDINGS: Note is made of an acute nondisplaced left maxillary fracture which extends through the randi eolar ridge of a left maxillary tooth. No additional acute fractures are noted. Alignment of the temp oromandibular joints is anatomic. The orbital floors are intact. Globes are intact. There is no retro bulbar hematoma. IMPRESSION: Acute nondisplaced left maxillary fracture which extends through the alveolar ridge of a left maxilla ry tooth. No additional acute facial fractures. ACT 112: Negative or not required by law. Electronically signed by: Landon Horne M.D. 01/06/2021 5:00 PM
[2021-01-06] MEDS ORDERED: ceFAZolin 2000MG 2,000 MG/15 ML SYR IV STA (17:34)
--- NOTE | 2021-01-06 17:44 | History & Physical Report ---
Date of Service January 06, 2021 Assessment & Plan (1) Colles' fracture: Plan: -Admit to Med[facility] -Ortho consulted, discussed [facility] Yoandyjud[facility], likely to do surgery on Monday with Dr. Nagel. Will need to make NPO on midnight for anticipated surgery Monday. -Vitals are stable, hemoglobin stable -Pain control with Tylenol 1000 mg q8h, MS IV for breakthrough pain, tramdol po prn, will avoid other narcotics due to hx of illicit drug use 40+ years ago. -bowel regimen ordered -Imaging reviewed (2) Closed fracture of maxillary bone: Plan: -Will consult oral maxillofacial surgery, Dr. Dash, for further management of maxillary fracture -Patient will need dental follow-up after discharge -Imaging reviewed -Clear liquid diet for now and advance as tolerated (3) Contusion of hip: Plan: -Continue ice, warm compress, pain control with Tylenol and other supportive measures, and imaging reviewed shows no acute fracture (4) Contusion of face: Plan: -Supportive treatment, order clear liquid diet (5) Seizure disorder: Plan: - Continue lamictal BID, LFTs WNL - No seizure-like activity - did not prompt her for mechanical fall as listed above (6) Dental trauma: Plan: -Follow-up with dentist upon discharge -Encourage mouth hygiene (7) Hypothyroidism: Plan: -Continue levothyroxine 100 mcg daily (8) Hyperparathyroidism: Plan: -History of such DVT PPx: - teds, scds CODE: DNR/DNI Dispo: From home, likely to remain in the hospital x 2 days History of Present Illness Primary Care Provider: Gil Hamilton MD Is a 70-year-old female with PMHx of seizure disorder on Lamictal, hyperparathyroidism, hypothyroidism, prediabetes and CKD stage III, recovering presents to the ER after an acute mechanical fall which she sustained by tripping over her left toe and fell onto her left wrist, hip and hit her left face off of the ground. She split her lip which is very painful currently. She was able to take p.o. meds at bedside and can swallow sips of water, she is agreeable to trying it clear liquid diet does not want anything harder to chew than that for right now. He denies that she had any seizure-like activity prior to this mechanical fall, last seizure was over 25 years ago and is absence like in nature, no grand mal or tonic-clonic seizure. She denies any other acute complaints currently. 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 She requests not having any addictive medications given to her. She did receive 1 dose of fentanyl in the ER due to severe pain. She does not use any devices for ambulatory assistance. Her is present with her at bedside and supports her history. Allergies Allergy/AdvReac Type Severity Reaction Status Date / Time ether Allergy Severe BLEEDING Verified 01/06/21 16:18 Penicillins Allergy Mild UNKNOWN-HAPPENED Verified 01/06/21 16:18 A CHILD Home Medications Medication Instructions Recorded Confirmed Type Lactobacillus acidophilus 10 1 cap PO Q OTHER DAY 01/26/18 01/06/21 History billion cell capsule (Probiotic) calcium carbonate 200 mg calcium 200 mg PO HS 01/26/18 01/06/21 History (500 mg) chewable tablet (Tums) lamotrigine 100 mg tablet 100 mg PO BID 01/26/18 01/06/21 History (Lamictal) levothyroxine 100 mcg tablet 100 mcg PO DAILY 01/26/18 01/06/21 History cyclosporine 0.05 % eye drops in a 1 drp OPB Q12H 01/06/21 01/06/21 History dropperette (Restasis) famotidine 20 mg tablet (Pepcid AC) 20 mg PO BID 01/06/21 01/06/21 History Past Med/Surg History Medical History Abnormal findings on diagnostic imaging of gall bladder Abnormal findings on diagnostic imaging of gall bladder Pyelonephritis Seizure disorder Family History Other GERD (gastroesophageal reflux disease) Social History Smoking Status: Never smoker Second Hand Exposure: No; Do You Dip or Chew Tobacco: No; Hx Alcohol Use: No Hx Substance Use: No Preferred Language: Guyanese Communication Ability: Effective Hotbed Lever Operator Required: No Beliefs That Will Affect Care: None marital status: Current Living Situation: Alone Other Information That Helps Us Care for You: No Feels Safe at Home: Yes Safety Concerns: Feels Safe At This Time Assistive Devices: None Assistive Devices Comment: reading glasses Review of Systems Review of Systems: Constitutional: No fever, sweats or chills Eyes: No diplopia, no worsening or blurred vision ENT: normal hearing, + trouble swallowing due to pain and split lip Respiratory: No cough, sputum, dyspnea at rest or on exertion Cardiovascular: No chest pain, tightness or palpitations Abdomen: No pain, + slight nausea from pain, no vomiting, diarrhea or constipation, last BM was this morning. Musculoskeletal: + Left arm pain now immobilized, left hip pain and bruising, left great toe pain, right palm bruising, no joint pain, calf pain, swelling Neurologic: No weakness, numbness/tingling, or balance problems Psychiatric: No anxiety or depression Skin: No rash or itch Physical Exam Physical Exam: General: awake, alert, no apparent distress Head: Normocephalic, + trauma to left lip, laceration, partial denture plate with multiple areas of chipping. ENT: PERRL, EOMI, no pharyngeal exudate, mucous membranes dry, vermilion border has dried blood surrounding it Chest: Clear to auscultation, on room air, no adventitious breath sounds Cardiac: Regular rate and rhythm, no murmur, no JVD, normal peripheral pulses, good capillary refill Abdominal: NABS x 4 quadrants, soft, nondistended, nontender to palpation, no rebound or guarding Extremities: Left upper extremity immobilized, left hip with some areas of ecchymosis, left great toe small abrasion, no ecchymosis, can move toes without difficulty both feet, right palm with small area of developing ecchymosis, otherwise no peripheral edema or erythema, calfs nontender to palpation Psych: Normal mood and affect Neuro: AAO x 3, strength intact bilaterally and rated 5/5, no motor deficits, speech is clear, no peripheral sensory deficits Results & Data Results & Data ([facility]) Vital Signs (Past 12 Hours) Vital Signs Temp Pulse Resp BP Pulse Ox 01/06/21 16:44 89 23 96 01/06/21 16:00 82 17 141/84 H 98 01/06/21 15:30 74 19 138/87 99 09/08/21 15:02 74 21 99 01/06/21 14:00 82 23 135/82 100 01/06/21 13:30 79 23 132/87 89 L 01/06/21 13:04 74 20 95 01/06/21 13:00 77 29 H 139/80 96 01/06/21 12:44 36.8 C 87 22 134/78 98 Diagnostic Findings Chest X-Ray 01/06/21 12:53 SINGLE VIEW CHEST CLINICAL HISTORY: Fall. FINDINGS: An AP, portable, supine chest radiograph is compared to study dated 01/25/2018. Correlation is made with chest CT dated 02/10/2018. The examination is degraded by portable technique and patient rotation. The cardiomediastinal silhouette is unremarkable. Chronic interstitial thickening is similar to previous. There is mild bibasilar scarring/atelectasis. No airspace consolidation or large pleural effusion is identified. No pneumothorax is seen. The skeletal structures are osteopenic. The bony thorax is grossly intact. IMPRESSION: No acute cardiopulmonary abnormality. ACT 112: Negative or not required by law. Electronically signed by: Wai Jules M.D. 01/06/2021 3:19 PM Elbow X-Ray 01/06/21 12:53 XR elbow LT min 3V routine CLINICAL HISTORY: Left elbow pain following fall. COMPARISON: Left elbow radiographs November 06, 2017. FINDINGS: Alignment of the left elbow is anatomic. There is no evidence for a joint effusion. There is no acute fracture. IMPRESSION: No acute fracture or joint effusion of the left elbow. ACT 112: Negative or not required by law. Electronically signed by: Landon Horne M.D. 01/06/2021 3:19 PM Hand X-Ray 01/06/21 12:53 XR hand LT min 3V routine CLINICAL HISTORY: fall COMPARISON: None FINDINGS: Carpal bones are intact. Note is made of an acute moderately displaced significantly comminuted distal left radial fracture with dorsal tilt of the distal component. Intra-articular extension of fracture is noted. Left wrist soft tissue swelling is present. IMPRESSION: Acute moderately displaced significantly comminuted and angulated distal left radial fracture with intra-articular extension. ACT 112: Negative or not required by law. Electronically signed by: Landon Horne M.D. 01/06/2021 3:27 PM Hip/Pelvis X-Ray 01/06/21 12:53 XR hip LT 2V w pelvis CLINICAL HISTORY: fall COMPARISON: None. DISCUSSION: No acute fracture or dislocation seen. No blastic or lytic lesions are seen. Mild degenerative changes of the lumbar spine. Multiple nondilated gas-filled loops of bowel are seen within lower abdomen and pelvic region IMPRESSION: No acute fracture dislocation. ACT 112: Negative or not required by law. The above report was generated using voice recognition software. It may contain grammatical, syntax or spelling errors. Electronically signed by: Yoly Baxter DO 01/06/2021 3:19 PM Humerus X-Ray 01/06/21 12:53 XR humerus LT 2V CLINICAL HISTORY: fall COMPARISON: November 06, 2017 DISCUSSION: No definite acute fracture dislocation seen. No blastic or lytic lesions are seen. IMPRESSION: Negative study. ACT 112: Negative or not required by law. The above report was generated using voice recognition software. It may contain grammatical, syntax or spelling errors. Electronically signed by: Yoly Baxter DO 01/06/2021 3:20 PM Knee X-Ray 01/06/21 12:53 LEFT KNEE 2 VIEWS CLINICAL HISTORY: Fall with left knee pain. FINDINGS: AP and crosstable lateral views of the left knee are obtained. No prior studies are available for comparison at the time of dictation. The skeletal structures are osteopenic. No fracture is seen. There is mild tricompartmental degenerative joint space narrowing. There is no joint effusion. The overlying soft tissues are normal as imaged. There is mild atherosclerotic calcification of the popliteal artery. IMPRESSION: No acute bony abnormality is identified. Electronically signed by: Wai Jules M.D. 01/06/2021 3:21 PM Wrist X-Ray 01/06/21 12:53 XR wrist LT min 3V routine CLINICAL HISTORY: fall COMPARISON: None. DISCUSSION: There is comminuted displaced fracture of the distal radius associated with volar apex angulation and shortening. Positive ulnar variance is seen on this exam. There is possible extension of the fracture line to the radiocarpal joint. Mild soft tissue edema is seen. IMPRESSION: As above. ACT 112: Negative or not required by law. The above report was generated using voice recognition software. It may contain grammatical, syntax or spelling errors. Electronically signed by: Yoly Baxter DO 01/06/2021 3:[address] 01/06/21 15:58 CT SCAN OF THE CERVICAL SPINE CLINICAL HISTORY: Fall. COMPARISON STUDY: No priors. TECHNIQUE: CT scan of the cervical spine is performed from the skull base to the upper thoracic spine. Images are reviewed in the axial, sagittal, and coronal planes. IV contrast was not administered for this examination. A dose lowering technique was utilized adhering to the principles of ALARA. CT DOSE: 396.85 mGycm FINDINGS: Skeletal structures: The skeletal structures are osteopenic. There is no evidence of fracture or subluxation involving the cervical spine. Vertebral body height and alignment are maintained. Tiny anterior osteophytes are seen throughout. The odontoid process and lateral masses are intact. The atlantoaxial articulation is preserved noting productive degenerative change. The spinous processes appear intact. Intervertebral discs: The disc spaces are well maintained. Central canal: Widely patent. Soft tissues: The prevertebral and paraspinous soft tissues are within normal limits. There is atherosclerotic calcification of the carotid bulbs. Calvarium: The visualized calvarium at the skull base appears intact. Brain parenchyma: Partially visualized brain parenchyma at the skull base is within normal limits. Sinuses and mastoids: The visualized paranasal sinuses are clear. The mastoid air cells are well pneumatized. Lung apices: Clear as visualized. IMPRESSION: 1. There is no evidence of fracture or subluxation involving the cervical spine. 2. Osteopenia and mild spondylotic change as above. ACT 112: Negative or not required by law. Electronically signed by: Wai Jules M.D. 01/06/2021 4:[address] 01/06/21 15:[address] WITHOUT CONTRAST CLINICAL HISTORY: fall COMPARISON STUDY: None. TECHNIQUE: A maxillofacial CT was performed without IV contrast. Coronal and sagittal reformats were viewed. Automated exposure control was utilized for the study. A dose lowering technique was utilized adhering to the principles of ALARA. FINDINGS: Note is made of an acute nondisplaced left maxillary fracture which extends through the alveolar ridge of a left maxillary tooth. No additional acute fractures are noted. Alignment of the temporomandibular joints is anatomic. The orbital floors are intact. Globes are intact. There is no retrobulbar hematoma. IMPRESSION: Acute nondisplaced left maxillary fracture which extends through the alveolar ridge of a left maxillary tooth. No additional acute facial fractures. ACT 112: Negative or not required by law. Electronically signed by: Landon Horne M.D. 01/06/2021 5:[address] 01/06/21 15:[address] DOSE: 638.56 mGycm HISTORY: fall TECHNIQUE: Multiaxial CT images of the head were performed without the use of intravenous contrast. Automated exposure control was utilized for this study. A dose lowering technique was utilized adhering to the principles of ALARA. Comparison: None. Findings: The paranasal sinuses and mastoid air cells are clear. The calvarium and skull base are intact. The ventricles and sulci demonstrate mild age-related involutional changes. Is also moderate atrophy of the cerebellum, unchanged. No mass, midline shift, acute infarct. Punctate hyperdensity within the cortex of the right posterior frontal lobe on image 17. This could be artifact. A tiny cortical contusion could also have a similar appearance. Impression: Punctate hyperdensity within the cortex of the right posterior frontal lobe which could be artifact. A tiny cortical contusion could also have a similar appearance. Therefore, follow-up head CT in 24 hours is recommended to ensure ability/resolution of this finding. ACT 112: Negative or not required by law. Electronically signed by: Mumtaz Estrella M.D. 01/06/2021 4:57 PM ECG Additional Comments: 25-JAN-2018 22:57:35 [facility]-EDSTAT ROUTINE RETRIEVAL Normal sinus rhythm Left axis deviation Minimal voltage criteria for LVH, may be normal variant Abnormal ECG When compared with ECG of 13-FEB-2014 09:57, No significant change was found Confirmed by ABHAY CASILLAS ([id number]) on 01/26/2018 1:23:02 PM 25mm/s 10mm/mV 150Hz 9.0.9 12SL 241 HD ABELARDO: 12 Referred by: REFERRED SELF Confirmed By: ABHAY Pagan. rate 70 BPM [place] interval 158 ms QRS duration 104 ms QT/QTc 368/397 ms Code Status & VTE Plan Code Status DNR/DNI- discussed with the pt at bedside Supervising Physician Co-Signing Physician Notes 70-year-old female with PMHx of seizure disorder on Lamictal, hyperparathyroidism, hypothyroidism, prediabetes and CKD stage III, recovering presents to the ER 01/06 after an acute mechanical fall which she sustained by tripping over her left toe and fell onto her left wrist, hip and hit her left face off of the ground. Orthopedics consulted, and oral maxillofacial surgery consulted. Upon examination: GENERAL: Alert and oriented x3. NAD, on RA. HEENT: No pallor, no icterus. Left lip with crusted blood, partial denture plate with multiple areas of chipping, pupils equal, round and reactive to light. Oral mucosa moist, painful opening of mouth.. NECK: No JVD, no neck masses. HEART: S1 and S2 heard. Regular rate and rhythm. No murmur, no gallop. RESPIRATORY SYSTEM: Normal AP diameter. No accessory muscle use. No wheezing, no crackles. ABDOMEN: Soft, bowel sounds present, nontender, no distention. CENTRAL NERVOUS SYSTEM: Alert and oriented x3. No facial droop. Speech is clear. Obeys simple commands. Moves extremities. EXTREMITIES: No edema, LUE in splint, left hip ecchymosis with multiple abrasions and ecchymosis on the left extremities. I have seen and examined the patient and have discussed the case with the provider above. I agree with the assessment and plan as stated. (1) Contusion of hip Encounter type: initial encounter Laterality: left Qualified Code(s): S70.02XA - Contusion of left hip, initial encounter (2) Colles' fracture Encounter type: initial encounter Fracture type: closed Laterality: left Qualified Code(s): S52.532A - Colles' fracture of left radius, initial encounter for closed fracture (3) Contusion of face Encounter type: initial encounter Qualified Code(s): S00.83XA - Contusion of other part of head, initial encounter (4) Dental trauma Encounter type: initial encounter Qualified Code(s): S09.93XA - Unspecified injury of face, initial encounter (5) Closed fracture of maxillary bone Encounter type: initial encounter Laterality: left Qualified Code(s): S02.40DA - Maxillary fracture, left side, initial encounter for closed fracture
[2021-01-06] MEDS: ACETAMINOPHEN 500 MG TAB PO SCH (17:55)
[2021-01-06 18:14] LABS: Appearance Urine Clear (Clear); Bacteria Urine Automated Negative (Negative); Bilirubin Urine Negative (Negative); Blood Urine Negative (Negative); Cast Urine Automated 0 /lpf (0-5); Color Urine Yellow; Epithelial Cell Urine Auto 20-30 /lpf (0-5); Glucose Urine UA Negative (Negative); Ketones Urine Negative (Negative); Leukocyte Esterase Urine 2+ (Negative); Nitrite Urine Negative (Negative); Protein Urine Negative (Negative); RBC Urine Automated 0-4 /hpf (0-4); Urobilinogen Urine Negative (Negative); pH Urine 7.5 (4.5-7.5)
[2021-01-06] MEDS ORDERED: POLYETHYLENE (MIRALAX) 17 GM PACK PO PRN (19:45)
[2021-01-06] MEDS: traMADol HCL 50 MG TABLET PO PRN (20:45)
[2021-01-06] MEDS: lamoTRIgine 100 MG TAB PO SCH (22:36)
[2021-01-06] MEDS: FAMOTIDINE 20 MG TAB PO SCH (22:36)
[2021-01-06] MEDS: MoRPHine SULFATE 2 MG/ML CARP IV PRN (23:18)
[2021-01-07] MEDS: ACETAMINOPHEN 500 MG TAB PO SCH ×3 (01:59→17:35)
[2021-01-07] MEDS: MoRPHine SULFATE 2 MG/ML CARP IV PRN ×5 (04:58→22:35)
[2021-01-07 06:41] LABS: Hematocrit (blood only) 41.2 % (37-47); Hemoglobin 13.2 g/dL (12.0-16.0); Mean Corpuscular Hemoglobin 30.8 pg (25-34); Mean Corpuscular Volume 96.3 fL (80-100); Mean Platelet Volume 11.7 fL (7.4-10.4); Platelet Count 273 K/uL (130-400); RDW Standard Deviation 49.4 fL (36.4-46.3); Red Blood Count 4.28 M/uL (4.2-5.4); White Blood Count 6.66 K/uL (4.8-10.8)
[2021-01-07 07:20] LABS: Albumin Globulin Ratio 0.8 (0.9-2); Albumin Level 3.2 gm/dl (3.4-5.0); BUN Creatinine Ratio 8.8 (10-20); Bilirubin,Total 0.4 mg/dl (0.2-1); Calcium 8.8 mg/dl (8.5-10.1); Creatinine Clr Calc Pharmacy 41.8 ml/min; Est GFR (African American) 60.8 ml/min; Est GFR (Non-African American) 52.4 ml/min; Potassium 3.7 mmol/L (3.5-5.1); Total Protein 7.2 gm/dl (6.4-8.2)
[2021-01-07] MEDS: lamoTRIgine 100 MG TAB PO SCH ×2 (07:52→20:14)
[2021-01-07] MEDS: LEVOTHYROXINE SODIUM 100 MCG TABLET PO SCH (07:52)
[2021-01-07] MEDS: bisacodyL 5 MG TABEC PO SCH (07:53)
[2021-01-07] MEDS: FAMOTIDINE 20 MG TAB PO SCH (08:45)
[2021-01-07] MEDS: traMADol HCL 50 MG TABLET PO PRN (09:57)
[2021-01-07] MEDS: SODIUM CHLORIDE 0.9% 1000ML 1,000 ML IV SCH (10:25)
--- NOTE | 2021-01-07 11:06 | Oral/Maxillofacial Consult ---
Date of Consultation January 07, 2021 Assessment & Plan (1) Dental trauma: (2) Closed fracture of alveolar ridge of left side of maxilla: History of Present Illness Attending Physician: Ashok Nunez MD History of Present Illness I reviewed the CT scan and will evaluate Trina after I finish up in the office this afternoon. I do not feel the fracture is significant but I am concerned about the dental trauma. I will complete the review after I see her. I had the opportunity to review the CT scan and then did an oral evaluation on Trina. Trina has 4 teeth holding a large 12 unit bridge 3-14 the abutments are 3,8,9,15. The trauma caused a small segmental fracture of #15 area as a result the bridge got loose from # 15 and there may be a small root fracture associated with this tooth. The bridge is not fitting correctly which has caused the bridge to shift and create an open bite on the right side and early contact on the left. Overall the bridge is solid. No sinus fractures, TMJ WNL. I reassured Trina that the dental fracture will heal but that the bridge will need to be made over by Dr Marin her dentist. I discussed the case with Dr Marin and he will see Trina soon after her discharge from [facility]. Over all no fractures of the facial/ Jaw area that require any treatment. I discussed with Dr Marin that if he can adjust the bridge to make her more comfortable and then in 4-6 weeks to allow time for the small segmental fracture to heal he can then start the remaking of the 3-12 bridge. Trina was pleased with this plan Reviewed soft diet, good oral care and follow up with Dr Marin. Allergies Allergy/AdvReac Type Severity Reaction Status Date / Time ether Allergy Severe BLEEDING Verified 01/06/21 16:18 Penicillins Allergy Mild UNKNOWN-HAPPENED Verified 01/06/21 16:18 A CHILD Home Medications Medication Instructions Recorded Confirmed Type Lactobacillus acidophilus 10 1 cap PO Q OTHER DAY 01/26/18 01/06/21 History billion cell capsule (Probiotic) calcium carbonate 200 mg calcium 200 mg PO HS 01/26/18 01/06/21 History (500 mg) chewable tablet (Tums) lamotrigine 100 mg tablet 100 mg PO BID 01/26/18 01/06/21 History (Lamictal) levothyroxine 100 mcg tablet 100 mcg PO DAILY 01/26/18 01/06/21 History cyclosporine 0.05 % eye drops in a 1 drp OPB Q12H 01/06/21 01/06/21 History dropperette (Restasis) famotidine 20 mg tablet (Pepcid AC) 20 mg PO BID 01/06/21 01/06/21 History acetaminophen 500 mg tablet 1,000 mg PO Q8H 30 Days #180 tab 01/10/21 Rx (Tylenol Extra Strength) cholecalciferol (vitamin D3) 25 1,000 unit PO QAM 30 Days #30 cap 01/10/21 Rx mcg (1,000 unit) capsule multivitamin with folic acid 400 1 tab PO QAM 30 Days #30 tab 01/10/21 Rx mcg tablet (Daily-Chen (with folic acid)) Patient History Medical History Abnormal findings on diagnostic imaging of gall bladder Abnormal findings on diagnostic imaging of gall bladder Pyelonephritis Seizure disorder Family History Other GERD (gastroesophageal reflux disease) Social History Smoking Status: Never smoker Second Hand Exposure: No; Do You Dip or Chew Tobacco: No; Hx Alcohol Use: No Hx Substance Use: No Preferred Language: German Communication Ability: Effective Computer Systems Analyst Required: No Beliefs That Will Affect Care: None marital status: Current Living Situation: Alone Other Information That Helps Us Care for You: No Feels Safe at Home: Yes Safety Concerns: Feels Safe At This Time Assistive Devices: None Assistive Devices Comment: reading glasses Results & Data ([facility]) Vital Signs (Past 12 Hours) Vital Signs Temp Pulse Resp BP Pulse Ox 01/07/21 07:22 36.6 C 64 16 104/61 92 PG Care Time/CCT Total # of Minutes Spent Total Time Spent with Patient: Total time spent is greater than 50% in coordination of care (as documented) at patient's floor/unit and/or counseling patient: Coding Level of Care Code 85735 Initial Inpt Care Lvl 3 Diagnoses Dental trauma S09.93XA Encounter type: initial encounter Closed fracture of alveolar ridge of left side of maxilla S02.42XA (1) Dental trauma Encounter type: initial encounter Qualified Code(s): S09.93XA - Unspecified injury of face, initial encounter
[2021-01-07] MEDS: HEPARIN SOD 5,000 UNIT/0.5 ML VIAL SQ SCH ×2 (11:46→20:14)
--- NOTE | 2021-01-07 17:31 | Orthopedic Consultation ---
Date of Consultation January 07, 2021 Assessment & Plan (1) Colles' fracture: Patient will require ORIF of her left distal radius. Her other x-rays have been essentially benign showing no other fractures. Patient states that there is a possibility of a second head CT scan tomorrow to recheck the hyperdensity to see if there has been any change. Dr. Dash will also be stopping by to see the patient soon secondary to her maxillary fracture that goes into her dentition. In speaking with Dr. Avendaño who has reviewed her films, plans will be to perform ORIF of the right wrist on Monday morning. Currently the one problem the patient is having is opening and closing her jaw. We will have Dr. Dash weigh in on this. Normally we would require general anesthesia for the ORIF of her wrist. We will have to discuss this with the anesthesia crew for more input. History of Present Illness Reason for Consultation: Left wrist fracture Attending Physician: Ashok Nunez MD History of Present Illness Patient is a 70-year-old female who was admitted last night after a fall. Patient states that she was walking on her driveway and ended up stubbing her toe losing her balance and doing a face plant onto the driveway. Fell onto an outstretched arm and at that point had increased pain in the left wrist with some noted deformity. She also had multiple complaints of pain over the left hip and left knee. She denies loss of consciousness. She denies any shortness of breath, chest pain, lightheadedness prior to or after the fall. She came to [facility] emergency department. After multiple x-rays, it was found that she had a displaced left distal radius fracture. An incidental finding on CT of her head showed a hyperdensity in the cortex of the posterior frontal lobe. This raised the question of contusion. Patient was admitted for further care and we have been asked to take care of her wrist fracture. Currently she is lying in bed awake and alert. She does have some pain in the left wrist at this time but is controlled with pain medications. She states that most of her aches and pains that she had earlier with her hip and knee are better today and she is a little bit more mobile. She states that she is now having increased left great toe pain with ambulation. No other new complaints. Allergies Allergy/AdvReac Type Severity Reaction Status Date / Time ether Allergy Severe BLEEDING Verified 01/06/21 16:18 Penicillins Allergy Mild UNKNOWN-HAPPENED Verified 01/06/21 16:18 A CHILD Home Medications Medication Instructions Recorded Confirmed Type Lactobacillus acidophilus 10 1 cap PO Q OTHER DAY 01/26/18 01/06/21 History billion cell capsule (Probiotic) calcium carbonate 200 mg calcium 200 mg PO HS 01/26/18 01/06/21 History (500 mg) chewable tablet (Tums) lamotrigine 100 mg tablet 100 mg PO BID 01/26/18 01/06/21 History (Lamictal) levothyroxine 100 mcg tablet 100 mcg PO DAILY 01/26/18 01/06/21 History cyclosporine 0.05 % eye drops in a 1 drp OPB Q12H 01/06/21 01/06/21 History dropperette (Restasis) famotidine 20 mg tablet (Pepcid AC) 20 mg PO BID 01/06/21 01/06/21 History Patient History Medical History Abnormal findings on diagnostic imaging of gall bladder Abnormal findings on diagnostic imaging of gall bladder Pyelonephritis Seizure disorder Family History Other GERD (gastroesophageal reflux disease) Social History Smoking Status: Never smoker Second Hand Exposure: No; Do You Dip or Chew Tobacco: No; Hx Alcohol Use: No Hx Substance Use: No Preferred Language: Estonian Communication Ability: Effective Aircraft Electronics Technical Officer Required: No Beliefs That Will Affect Care: None marital status: Current Living Situation: Alone Other Information That Helps Us Care for You: No Feels Safe at Home: Yes Safety Concerns: Feels Safe At This Time Assistive Devices: None Assistive Devices Comment: reading glasses Physical Exam Physical Exam: On examination, the patient is a 70-year-old female who appears younger than her stated age. She has some notable abrasions and bruising on her face and around her mouth. She is oriented x3. She is in no acute distress, pleasant and cooperative. On examination of her left upper extremity a coaptation splint has been applied to her left wrist and forearm. She has mild swelling of her fingers at this time. On palpation of her fingers, she has some slight decrease sensation but she states that the fingers do not feel overtly numb. She is able to move the fingers but causes her moderate pain in her wrist. Passive range of motion of the fingers also does generate some discomfort in her wrist. She denies any elbow pain at this time. She denies any left shoulder pain. Cap refill is less than 2 seconds. No major complaints with her right upper extremity which range of motion is within normal limits. Examination of the left lower extremity proved to show some tenderness over the left greater trochanter. She states this is been feeling better but is quite touchy on palpation. Palpation of the knee appears to be a little bit tender but range of motion is intact. She is able to go through range of motion with her left hip with only mild discomfort. She is moving her left ankle well without discomfort. Palpation of the left great toe does proved to be somewhat tender but she does not have any overt bruising and or swelling. Right lower extremity appears to be unaffected and is nontender at the hip, knee, and ankle. No gross motor or sensory loss seen at this time. Results & Data ([facility]) Vital Signs (Past 12 Hours) Vital Signs Temp Pulse Resp BP Pulse Ox 01/07/21 14:31 36.8 C 67 17 110/58 L 94 01/07/21 07:22 36.6 C 64 16 104/61 92 Diagnostic Findings atient: YAYA CHILDNEAdmcricket Date: 01/06/21#: [id number][id number]: [facility] 1950[facility] Zip: [place], [place] [address]Avo: 70Location: EDSex: FRoom/Bed:Att Phy:Diagnosis: FALL, L WRIST, ARM, HIP, FOOT & BIG TOE PAINPri Phy: Gil Hamilton, PATYervice Date: 01/06/21Fam Phy:Interpreting Phy: Yoly Baxter DOAdmit Phy: Ordering Phy: Skinny Gandhi DO cc: ~ XR wrist LT min 3V routine CLINICAL HISTORY: fall COMPARISON: None. DISCUSSION: There is comminuted displaced fracture of the distal radius associated with volar apex angulation and shortening. Positive ulnar variance is seen on this exam. There is possible extension of the fracture line to the radiocarpal joint. Mild soft tissue edema is seen. IMPRESSION: As above. HEAD CT NONCONTRAST CT DOSE: 638.56 mGycm HISTORY: fall TECHNIQUE: Multiaxial CT images of the head were performed without the use of intravenous contrast. Automated exposure control was utilized for this study. A dose lowering technique was utilized adhering to the principles of ALARA. Comparison: None. Findings: The paranasal sinuses and mastoid air cells are clear. The calvarium and skull base are intact. The ventricles and sulci demonstrate mild age-related involutional changes. Is also moderate atrophy of the cerebellum, unchanged. No mass, midline shift, acute infarct. Punctate hyperdensity within the cortex of the right posterior frontal lobe on image 17. This could be artifact. A tiny cortical contusion could also have a similar appearance. Impression: Punctate hyperdensity within the cortex of the right posterior frontal lobe which could be artifact. A tiny cortical contusion could also have a similar appearance. Therefore, follow-up head CT in 24 hours is recommended to ensure ability/resolution of this finding. MAXILLOFACIAL CT WITHOUT CONTRAST CLINICAL HISTORY: fall COMPARISON STUDY: None. TECHNIQUE: A maxillofacial CT was performed without IV contrast. Coronal and sagittal reformats were viewed. Automated exposure control was utilized for the study. A dose lowering technique was utilized adhering to the principles of ALARA. FINDINGS: Note is made of an acute nondisplaced left maxillary fracture which extends through the alveolar ridge of a left maxillary tooth. No additional acute fractures are noted. Alignment of the temporomandibular joints is anatomic. The orbital floors are intact. Globes are intact. There is no retrobulbar hematoma. IMPRESSION: Acute nondisplaced left maxillary fracture which extends through the alveolar ridge of a left maxillary tooth. No additional acute facial fractures. (1) Colles' fracture Encounter type: initial encounter Fracture type: closed Laterality: left Qualified Code(s): S52.532A - Colles' fracture of left radius, initial encounter for closed fracture
--- NOTE | 2021-01-07 18:02 | Hospitalist Progress Note ---
Date of Service January 07, 2021 Assessment & Plan (1) Colles' fracture: Plan: 70-year-old female with PMHx of seizure disorder on Lamictal, hyperparathyroidism, hypothyroidism, prediabetes and CKD stage III presents to the ER 01/06 after an acute mechanical fall which she sustained by tripping over her left toe and fell onto her left wrist, hip and hit her left face off of the ground. Orthopedics consulted, and oral maxillofacial surgery consulted. #. Colles' fracture: #. Nondisplaced left maxillary fracture: Admitting left hand x-ray:Acute moderately displaced significantly comminuted and angulated distal left radial fracture with intra-articular extension. Admitting for CT: Acute nondisplaced left maxillary fracture which extends through the alveolar ridge of a left maxillary tooth. No additional acute facial fractures. Orthopedics on board: Likely surgery Monday morning. N.p.o. Monday midnight. Needs prior evaluation by oral maxillofacial surgeon as he has problems opening mouth. Patient will need general anesthesia during ORIF. Maxillofacial surgeon consulted: Appreciate recommendation Patient will need dental follow-up after discharge Control pain, gentle IV hydration, liquid diet as he has problem opening mouth. Avoid excessive narcotics due to history of illicit drug use 40+ years ago #. Abnormal CT head Admitting CT head: Punctate hypodensity within the cortex of the right posterior frontal lobe which could be artifact versus teeny cortical contusion. Will need to follow-up CT after 24 hours. We will get CT head tomorrow #. Contusion on left side of the body [face, LUE, Hip, LLE] Continue ice, warm compress, pain control with Tylenol and other supportive measures, and imaging reviewed shows no acute fracture otherwise mentioned above #. Seizure disorder: - Continue lamictal BID, LFTs WNL - No seizure-like activity - did not prompt her for mechanical fall as listed above #. Dental trauma: -Follow-up with dentist upon discharge -Encourage mouth hygiene #. Hypothyroidism: -Continue levothyroxine 100 mcg daily Admission and Anticipated Discharge Date Admission Date: January 06, 2021 Subjective Patient was lying in bed semiupright, NAD, room air, no new issues overnight. Patient's reports her pain being under control. Denies any other review of symptoms. We will keep her n.p.o. midnight and on gentle hydration for anticipation of orthopedic surgery tomorrow. Physical Exam Physical Exam: GENERAL: Alert and oriented x3. NAD, on RA. HEENT: No pallor, no icterus. Left lip with crusted blood, partial denture plate with multiple areas of chipping, pupils equal, round and reactive to light. Oral mucosa moist, painful opening of mouth.. NECK: No JVD, no neck masses. HEART: S1 and S2 heard. Regular rate and rhythm. No murmur, no gallop. RESPIRATORY SYSTEM: Normal AP diameter. No accessory muscle use. No wheezing, no crackles. ABDOMEN: Soft, bowel sounds present, nontender, no distention. CENTRAL NERVOUS SYSTEM: Alert and oriented x3. No facial droop. Speech is clear. Obeys simple commands. Moves extremities. EXTREMITIES: No edema, LUE in splint, left hip ecchymosis with multiple abrasions and ecchymosis on the left extremities. Distal neurovascular status intact. Results & Data Results & Data ([facility]) Vital Signs (Past 12 Hours) Vital Signs Temp Pulse Resp BP Pulse Ox 01/07/21 14:31 36.8 C 67 17 110/58 L 94 01/07/21 07:22 36.6 C 64 16 104/61 92 (1) Colles' fracture Encounter type: initial encounter Fracture type: closed Laterality: left Qualified Code(s): S52.532A - Colles' fracture of left radius, initial encounter for closed fracture
--- NOTE | 2021-01-07 20:25 | XRay Report ---
XR foot LT min 3V routine HISTORY: 70 years-old Female r/o great toe fx acute left foot pain COMPARISON: None TECHNIQUE: 3 views of the left foot FINDINGS: Demineralized appearance of the bones with mild multifocal osteoarthritis. No acute fracture, disloca tion or opaque foreign body. Mild forefoot soft tissue swelling. Arterial calcifications. IMPRESSION: No acute fracture. ACT 112: Negative or not required by law. The above report was generated using voice recognition software. It may contain grammatical, syntax o r spelling errors. Electronically signed by: Teodoro Beckett M.D. 01/07/2021 8:23 PM
[2021-01-07] MEDS ORDERED: KETOROLAC TROMETHAMINE 15 MG/ML VIAL IV ONE (23:57)
[2021-01-08] MEDS: ACETAMINOPHEN 500 MG TAB PO SCH ×3 (01:53→18:19)
[2021-01-08] MEDS: SODIUM CHLORIDE 0.9% 1000ML 1,000 ML IV SCH (01:57)
[2021-01-08 05:47] LABS: Hematocrit (blood only) 37.7 % (37-47); Hemoglobin 11.9 g/dL (12.0-16.0); Mean Corpuscular Hemoglobin 30.4 pg (25-34); Mean Corpuscular Hgb Conc 31.6 g/dL (32-36); Mean Corpuscular Volume 96.2 fL (80-100); Mean Platelet Volume 12.1 fL (7.4-10.4); Platelet Count 248 K/uL (130-400); RDW Coefficient of Variation 14.2 % (11.5-14.5); RDW Standard Deviation 50.1 fL (36.4-46.3); Red Blood Count 3.92 M/uL (4.2-5.4); White Blood Count 6.79 K/uL (4.8-10.8)
[2021-01-08 06:18] LABS: Albumin Level 2.7 gm/dl (3.4-5.0); Calcium 8.4 mg/dl (8.5-10.1); Creatinine Clr Calc Pharmacy 47.2 ml/min; Est GFR (African American) 70.2 ml/min; Est GFR (Non-African American) 60.6 ml/min; Potassium 3.9 mmol/L (3.5-5.1)
[2021-01-08 06:21] LABS: Albumin Globulin Ratio 0.7 (0.9-2); Bilirubin,Total 0.2 mg/dl (0.2-1); Globulin 3.6 gm/dl (2.5-4.0); Total Protein 6.4 gm/dl (6.4-8.2)
[2021-01-08] MEDS: lamoTRIgine 100 MG TAB PO SCH ×2 (07:50→20:47)
[2021-01-08] MEDS: FAMOTIDINE 20 MG TAB PO SCH (07:50)
[2021-01-08] MEDS: bisacodyL 5 MG TABEC PO SCH (07:50)
[2021-01-08] MEDS: LEVOTHYROXINE SODIUM 100 MCG TABLET PO SCH (07:51)
--- NOTE | 2021-01-08 08:33 | CT Scan Report ---
CT head/brain wo con CLINICAL HISTORY: 70 years-old Female with f/u CT head. TECHNIQUE: Multiple axial CT images of the head were obtained without contrast. A dose lowering tech nique was utilized adhering to the principles of ALARA. CT DOSE: 614.27 mGy.cm COMPARISON: None. FINDINGS: No acute intracranial hemorrhage, midline shift, intracranial mass, hydrocephalus, territorial ischem ia or abnormal extra-axial collection. Age-related involutional changes. White matter hypodensities s uggestive of chronic microvascular ischemic disease. The previously questioned tiny cortical contusio n of the right frontal lobe is not definitively seen. Cerebral vascular calcifications. The calvarium is intact. Prior bilateral lens repair. The paranasal sinuses, mastoid air cells, and m iddle ear cavities are clear. IMPRESSION: No acute intracranial abnormality. The previously questioned punctate cortical contusion of the right frontal lobe is not identified which was likely artifactual. ACT 112: Negative or not required by law. The above report was generated using voice recognition software. It may contain grammatical, syntax o r spelling errors. Electronically signed by: Teodoro Beckett M.D. 01/08/2021 8:31 AM
[2021-01-08] MEDS: SODIUM CHLORIDE 0.45 % 1,000 ML IV SCH (09:33)
[2021-01-08] MEDS: HEPARIN SOD 5,000 UNIT/0.5 ML VIAL SQ SCH ×2 (10:03→20:48)
[2021-01-08] MEDS: CHOLECALCIFEROL 1,000 UNITS 25 MCG TAB PO SCH (14:47)
[2021-01-08] MEDS: oxyCODONE HCL IR 5 MG TAB (IMMEDIATE RELEASE) PO PRN ×2 (14:47→22:07)
--- NOTE | 2021-01-08 18:18 | Hospitalist Progress Note ---
Date of Service January 08, 2021 Assessment & Plan (1) Colles' fracture: Plan: 70-year-old female with PMHx of seizure disorder on Lamictal, hyperparathyroidism, hypothyroidism, prediabetes and CKD stage III presents to the ER 01/06 after an acute mechanical fall which she sustained by tripping over her left toe and fell onto her left wrist, hip and hit her left face off of the ground. Orthopedics consulted, and oral maxillofacial surgery consulted. #. Colles' fracture: #. Nondisplaced left maxillary fracture: Admitting left hand x-ray:Acute moderately displaced significantly comminuted and angulated distal left radial fracture with intra-articular extension. Admitting for CT: Acute nondisplaced left maxillary fracture which extends through the alveolar ridge of a left maxillary tooth. No additional acute facial fractures. Orthopedics on board: Likely surgery Monday morning. N.p.o. Monday midnight. Per patient, maxillofacial surgeon is considering have her dentist look at her. Patient will need general anesthesia during ORIF. Maxillofacial surgeon consulted: Appreciate recommendation Patient will need dental follow-up after discharge Control pain, gentle IV hydration, liquid diet as he has problem opening mouth. Avoid excessive narcotics due to history of illicit drug use 40+ years ago #. Abnormal CT head Admitting CT head: Punctate hypodensity within the cortex of the right posterior frontal lobe which could be artifact versus teeny cortical contusion. Will need to follow-up CT after [address] head confirmed early hypodensity to be artifact #. Contusion on left side of the body [face, LUE, Hip, LLE] Continue ice, warm compress, pain control with Tylenol and other supportive measures, and imaging reviewed shows no acute fracture otherwise mentioned above #. Seizure disorder: - Continue lamictal BID, LFTs WNL - No seizure-like activity - did not prompt her for mechanical fall as listed above #. Dental trauma: -Follow-up with dentist upon discharge -Encourage mouth hygiene #. Hypothyroidism: -Continue levothyroxine 100 mcg daily Admission and Anticipated Discharge Date Admission Date: January 06, 2021 Subjective Patient was lying in bed semiupright, NAD, room air, no new issues overnight. Patient's reports her pain being under control. Patient looks better today denies any other review of symptoms. We will keep her n.p.o. midnight and on gentle hydration for anticipation of orthopedic surgery tomorrow. Physical Exam Physical Exam: GENERAL: Alert and oriented x3. NAD, on RA. HEENT: No pallor, no icterus. Left lip with crusted blood, partial denture plate with multiple areas of chipping, pupils equal, round and reactive to light. Oral mucosa moist, painful opening of mouth.. NECK: No JVD, no neck masses. HEART: S1 and S2 heard. Regular rate and rhythm. No murmur, no gallop. RESPIRATORY SYSTEM: Normal AP diameter. No accessory muscle use. No wheezing, no crackles. ABDOMEN: Soft, bowel sounds present, nontender, no distention. CENTRAL NERVOUS SYSTEM: Alert and oriented x3. No facial droop. Speech is clear. Obeys simple commands. Moves extremities. EXTREMITIES: No edema, LUE in splint, left hip ecchymosis with multiple abrasions and ecchymosis on the left extremities. Distal neurovascular status intact. Results & Data Results & Data ([facility]) Vital Signs (Past 12 Hours) Vital Signs Temp Pulse Resp BP Pulse Ox 01/08/21 15:33 36.9 C 66 16 108/63 94 01/08/21 07:24 37.0 C 76 16 94/52 L 93 (1) Colles' fracture Encounter type: initial encounter Fracture type: closed Laterality: left Qualified Code(s): S52.532A - Colles' fracture of left radius, initial encounter for closed fracture
[2021-01-09] MEDS: ACETAMINOPHEN 500 MG TAB PO SCH ×3 (00:21→16:38)
[2021-01-09] MEDS: SODIUM CHLORIDE 0.45 % 1,000 ML IV SCH (00:21)
--- NOTE | 2021-01-09 05:19 | Anesthesiology Consultation ---
Date of Service January 09, 2021 Assessment & Plan Chart Review Chart Review: Acceptable Risk for Surgery and Patient NOT seen in Pre Admission Testing Consults Requested none History Surgery Operation Date: 01/09/21 07:30 Proposed Procedures p Left Distal Radius Open Reduction Internal Fixation - Haider Avendaño MD Height/Weight Height: 5 ft 2 in Weight: 63 kg Allergies Allergy/AdvReac Type Severity Reaction Status Date / Time ether Allergy Severe BLEEDING Verified 01/06/21 16:18 Penicillins Allergy Mild UNKNOWN-HAPPENED Verified 01/06/21 16:18 A CHILD Medications Home Medications Medication Instructions Recorded Confirmed Last Taken Lactobacillus acidophilus 10 1 cap PO Q OTHER DAY 01/26/18 01/06/21 01/05/21 billion cell capsule (Probiotic) calcium carbonate 200 mg calcium 200 mg PO HS 01/26/18 01/06/21 01/05/21 (500 mg) chewable tablet (Tums) lamotrigine 100 mg tablet 100 mg PO BID 01/26/18 01/06/21 01/06/21 08:00 (Lamictal) levothyroxine 100 mcg tablet 100 mcg PO DAILY 01/26/18 01/06/21 01/06/21 cyclosporine 0.05 % eye drops in a 1 drp OPB Q12H 01/06/21 01/06/21 01/06/21 08:00 dropperette (Restasis) famotidine 20 mg tablet (Pepcid AC) 20 mg PO BID 01/06/21 01/06/21 01/06/21 08:00 Active Medications Generic Name Dose Route Start Last Admin Trade Name Marquezq PRN Reason Stop Dose Admin Acetaminophen 1,000 mg 01/06/21 17:47 01/09/21 00:21 Acetaminophen 500 Mg Tab PO 02/05/21 17:46 Not Given Q8H KEKE Bisacodyl 5 mg 01/07/21 09:00 01/08/21 07:50 Bisacodyl 5 Mg Tabec PO 02/06/21 08:59 5 mg DAILY KEKE Administration Famotidine 20 mg 01/06/21 21:00 01/08/21 07:50 Famotidine 20 Mg Tab PO 02/05/21 20:59 20 mg DAILY KEKE Administration Protocol Sodium Chloride 1,000 mls @ 60 mls/hr 01/08/21 08:45 01/09/21 00:21 1/2 Nss IV 02/07/21 08:44 60 mls/hr .[id number] KEKE Administration Lamotrigine 100 mg 01/06/21 21:00 01/08/21 20:47 Lamotrigine 100 Mg Tab PO 02/05/21 20:59 100 mg BID KEKE Administration Levothyroxine Sodium 100 mcg 01/07/21 09:00 01/08/21 07:51 Levothyroxine Sodium 100 Mcg Tablet PO 02/06/21 08:59 100 mcg DAILY KEKE Administration Miscellaneous 1 ea 01/07/21 00:00 01/08/21 20:51 Order Awaiting Action [Restasis 0.05% Opthalmic Drop] N/A 02/06/21 00:00 Not Given QS KEKE Oxycodone HCl 5 - 10 mg 01/07/21 23:57 01/08/21 22:07 Oxycodone Hcl Ir 5 Mg Tab (Immediate Release) PO 01/21/21 23:56 10 mg QID PRN Administration Pain Vitamin D 1,000 units 01/08/21 13:30 01/08/21 14:47 Cholecalciferol 1,000 Units 25 Mcg Tab PO 02/07/21 13:29 1,000 units QAM KEKE Administration Past Medical History Medical History Abnormal findings on diagnostic imaging of gall bladder Abnormal findings on diagnostic imaging of gall bladder Pyelonephritis Seizure disorder Past Family History Family History Other GERD (gastroesophageal reflux disease) Social History Smoking Status: Never smoker Do You Dip or Chew Tobacco: No Hx Alcohol Use: No Hx Substance Use: No substance use type: former substance user Substance Use Type Other:: quit 40 years ago Physical Exam Vital Signs Last Vital Signs Temp 37.1 C 01/08/21 22:03 Pulse 69 01/08/21 22:03 Resp 16 01/08/21 22:03 BP 133/75 01/08/21 22:03 Pulse Ox 95 01/09/21 01:27 Testing Laboratory Results 01/08/21 05:25 01/08/21 05:25 Urine Color Yellow 01/06/21 17:45 Urine Appearance Clear (Clear) 01/06/21 17:45 Urine pH 7.5 (4.5-7.5) 01/06/21 17:45 Ur Specific [place] 1.010 (1.000-1.030) 01/06/21 17:45 Urine Protein Negative (Negative) 01/06/21 17:45 Urine Glucose (UA) Negative (Negative) 01/06/21 17:45 Urine Ketones Negative (Negative) 01/06/21 17:45 Urine Nitrite Negative (Negative) 01/06/21 17:45 Ur Leukocyte Esterase 2+ (Negative) H 01/06/21 17:45 Urine WBC (Auto) 5-10 /hpf (0-5) H 01/06/21 17:45 Urine RBC (Auto) 0-4 /hpf (0-4) 01/06/21 17:45 U Hyaline Cast (Auto) 0 /lpf (0-5) 01/06/21 17:45 U Epithel Cells (Auto) 20-30 /lpf (0-5) H 01/06/21 17:45 Urine Bacteria (Auto) Negative (Negative) 01/06/21 17:45
[2021-01-09] MEDS ORDERED: fentaNYL citrate 100 MCG/2 ML VIAL ONE ×2 (07:17→08:10)
[2021-01-09] MEDS ORDERED: BUPIVACAINE 0.25% 30 ML VIAL ONE (07:26)
[2021-01-09] MEDS ORDERED: ePHEDrine sulfate 50 MG/ML AMP IV PRN (07:27)
[2021-01-09] MEDS ORDERED: ONDANSETRON INJ 2 MG/ML 2 ML VIAL IV PRN (07:27)
[2021-01-09] MEDS ORDERED: ATROPINE SULFATE 0.1 MG/ML 10ML SYR IV PRN (07:27)
[2021-01-09] MEDS ORDERED: CLINDAMYCIN PHOS 300 MG/2 ML VIAL ONE (07:33)
--- NOTE | 2021-01-09 07:38 | History & Physical Bridge Note ---
Date of Service January 09, 2021 History & Physical Bridge Note I have examined the patient, reviewed the History & Physical and in the interval since the performance of the History & Physical I have noted the following changes of clinical significance: no changes noted I saw the patient in the preoperative holding holding area we discussed risk benefits reasonable outcomes and expectations for: 1. Left open reduction internal fixation distal radius fracture. She notes no interval changes.
[2021-01-09] MEDS ORDERED: LIDOCAINE 2% 2 ML VIAL/AMP(20MG/ML) INFIL ONE (08:03)
[2021-01-09] MEDS ORDERED: ONDANSETRON INJ 2 MG/ML 2 ML VIAL ONE (08:03)
[2021-01-09] MEDS ORDERED: PROPOFOL IV EMULSION 10 MG/ML 20 ML VIAL IV ONE (08:03)
[2021-01-09] MEDS ORDERED: ePHEDrine sulfate 50 MG/ML SYR ONE (08:03)
[2021-01-09] MEDS ORDERED: KETOROLAC 30 MG/ML VIAL ONE (08:11)
[2021-01-09] MEDS ORDERED: ACETAMINOPHEN 1000 MG/100 ML IV IV ONE (08:13)
--- NOTE | 2021-01-09 08:53 | Post Operative Brief Note ---
Immediate Post Op Note v1 Date of Surgery January 09, 2021 Pre & Post Diagnosis Operation Date: 01/09/21 07:30 Pre-Op Diagnosis: Intra-articular distal fracture of left radius Post-Op Diagnosis: Intra-articular distal fracture of left radius I identified the patient and participated in the time-out.: Yes Procedure Operation Date: 01/09/21 07:30 Actual Procedures p Open Reduction of Intra-articular distal fracture of left radius(Left) - Haider Avendaño MD Surgeon Haider Avendaño MD Architectural Engineering Teacher suzan mendez PA-C Estimated Blood Loss 5 Findings Consistent with Post-Op Diagnosis
[2021-01-09] MEDS: fentaNYL citrate 100 MCG/2 ML VIAL IV PRN ×2 (09:25→09:42)
--- NOTE | 2021-01-09 09:43 | Fluoroscopy Report ---
FL wrist LT 2V RTN CLINICAL HISTORY: ORIF LT DISTAL RADIUS COMPARISON STUDY: Left wrist 01/06/2021. FLUOROSCOPY TIME: 30 seconds. FINDINGS: 6 fluoroscopic spot images of the left wrist demonstrate internal fixation of the distal left radius fracture with a cortical plate and screws. The hardware appears intact. The alignment appears near-anatomic. There is a fracture at the ulnar styloid. IMPRESSION: Fluoroscopy provided for internal fixation of a distal left radius fracture. ACT 112: Negative or not required by law. Electronically signed by: Mumtaz Estrella M.D. 01/09/2021 9:42 AM REUBEN
[2021-01-09] MEDS: HYDROmorphone INJ 2 MG/ML SYR/VIAL IV PRN ×3 (09:49→10:09)
--- NOTE | 2021-01-09 09:59 | Anesthesiology Progress Note ---
Date of Service January 09, 2021 Anesthesia Post Procedure Vital Signs Vital Signs: Temp Pulse Pulse Resp BP Pulse Ox 01/09/21 09:46 36.6 C 73 14 134/71 95 01/09/21 09:36 90 14 140/71 96 01/09/21 09:26 93 H 13 141/75 H 97 01/09/21 09:16 36 C L 98 H 18 144/74 H 95 01/09/21 06:55 36.6 C 86 16 156/84 H 95 01/09/21 05:26 36.9 C 75 16 123/71 95 01/09/21 01:27 95 01/08/21 22:03 37.1 C 69 16 133/75 93 01/08/21 15:33 36.9 C 66 16 108/63 94 Pain Intensity Left Arm: Pain Intensity: 9 Transfer of Care Handoff Completed per policy Notes Mental Status: alert / awake / arousable and participated in evaluation Patient Amnestic to Procedure: Yes Nausea / Vomiting: adequately controlled Pain: adequately controlled Airway Patency, RR, SpO2: stable & adequate BP & HR: stable & adequate Hydration State: stable & adequate Anesthetic Complications: no major complications apparent and Pt Satisfied with anesthetic care
[2021-01-09] MEDS: ONDANSETRON INJ 2 MG/ML 2 ML VIAL IV PRN (11:01)
[2021-01-09] MEDS ORDERED: bisacodyL 10 MG SUPP PR PRN (11:02)
[2021-01-09] MEDS ORDERED: MAGNESIUM HYDROXIDE SUSP 30 ML UDC PO PRN (11:02)
[2021-01-09] MEDS ORDERED: NALOXONE HCL 0.4 MG/1 ML VIAL/CARP IV PRN (11:02)
[2021-01-09 11:12] LABS: Hematocrit (blood only) 23.2 % (37-47); Hemoglobin 7.5 g/dL (12.0-16.0); Mean Corpuscular Hemoglobin 31.1 pg (25-34); Mean Corpuscular Hgb Conc 32.3 g/dL (32-36); Mean Corpuscular Volume 96.3 fL (80-100); Mean Platelet Volume 11.2 fL (7.4-10.4); Platelet Count 144 K/uL (130-400); RDW Coefficient of Variation 13.9 % (11.5-14.5); RDW Standard Deviation 48.8 fL (36.4-46.3); Red Blood Count 2.41 M/uL (4.2-5.4)
[2021-01-09 11:39] LABS: Alanine Aminotransferase 12 U/L (12-78); Albumin Globulin Ratio 0.7 (0.9-2); Albumin Level 1.4 gm/dl (3.4-5.0); Alkaline Phosphatase 51 U/L (45-117); Aspartate Aminotransferase 18 U/L (15-37); BUN Creatinine Ratio 20.2 (10-20); Bilirubin,Total < 0.1 mg/dl (0.2-1); Blood Urea Nitrogen 5 mg/dl (7-18); Calcium 6.7 mg/dl (8.5-10.1); Carbon Dioxide 15 mmol/L (21-32); Chloride 107 mmol/L (98-107); Creatinine Clr Calc Pharmacy 177.4 ml/min; Est GFR (African American) 140.8 ml/min; Est GFR (Non-African American) 121.5 ml/min; Globulin 1.9 gm/dl (2.5-4.0); Glucose 71 mg/dl (70-99); Sodium 137 mmol/L (136-145); Total Protein 3.3 gm/dl (6.4-8.2)
[2021-01-09] MEDS: SODIUM CHLORIDE 0.9% 1000ML 1,000 ML IV SCH ×2 (12:09→22:02)
[2021-01-09] MEDS: CHOLECALCIFEROL 1,000 UNITS 25 MCG TAB PO SCH (12:42)
[2021-01-09] MEDS: bisacodyL 5 MG TABEC PO SCH (12:42)
[2021-01-09] MEDS: FAMOTIDINE 20 MG TAB PO SCH ×2 (12:43→20:25)
[2021-01-09] MEDS: LEVOTHYROXINE SODIUM 100 MCG TABLET PO SCH (12:43)
[2021-01-09] MEDS: lamoTRIgine 100 MG TAB PO SCH ×2 (12:43→20:25)
--- NOTE | 2021-01-09 13:21 | Hospitalist Progress Note ---
Date of Service January 09, 2021 Assessment & Plan (1) Colles' fracture: Plan: 70-year-old female with PMHx of seizure disorder on Lamictal, hyperparathyroidism, hypothyroidism, prediabetes and CKD stage III presents to the ER 01/06 after an acute mechanical fall which she sustained by tripping over her left toe and fell onto her left wrist, hip and hit her left face off of the ground. Orthopedics consulted, and oral maxillofacial surgery consulted. #. Colles' fracture: #. Nondisplaced left maxillary fracture: Admitting left hand x-ray:Acute moderately displaced significantly comminuted and angulated distal left radial fracture with intra-articular extension. Admitting for CT: Acute nondisplaced left maxillary fracture which extends through the alveolar ridge of a left maxillary tooth. No additional acute facial fractures. Orthopedics on board: Status post ORIF intra-articular distal fracture of left radius 01/09. Maxillofacial surgeon consulted: Appreciate recommendation. Per patient, maxillofacial surgeon is considering have her dentist look at her. Patient will need dental follow-up after discharge Control pain, gentle IV hydration, liquid diet as she has problem opening mouth. Avoid excessive narcotics due to history of illicit drug use 40+ years ago Encourage incentive spirometry #. Acute anemia Hemoglobin at presentation 15.2 Hemoglobin downtrending, 11.9 yesterday, 7.5 today Likely secondary to blood loss from trauma versus hemo-dilution. EBL during or a 5 mL per Ortho note. Repeat hemoglobin 4 PM today Transfuse for hemoglobin less than 7. Rule out other source: Iron profile, vitamin B12, folate, FOBT. #. Abnormal CT head Admitting CT head: Punctate hypodensity within the cortex of the right posterior frontal lobe which could be artifact versus teeny cortical contusion. Will need to follow-up CT after [address] head confirmed early hypodensity to be artifact #. Contusion on left side of the body [face, LUE, Hip, LLE] Continue ice, warm compress, pain control with Tylenol and other supportive measures, and imaging reviewed shows no acute fracture otherwise mentioned above #. Seizure disorder: - Continue lamictal BID, LFTs WNL - No seizure-like activity - did not prompt her for mechanical fall as listed above #. Dental trauma: -Follow-up with dentist upon discharge -Encourage mouth hygiene #. Hypothyroidism: -Continue levothyroxine 100 mcg daily Disposition: Anticipate discharge in 1 to 2 days, await PT/OT recommendation and therapeutic case manager to assist with discharge planning. Admission and Anticipated Discharge Date Admission Date: January 06, 2021 Subjective Patient was lying in bed semiupright, NAD, 2 L nasal cannula, no new issues overnight. Patient is a status post ORIF of distal fracture of left radius. Patient feeling mild nausea, reports improvement in her mouth opening. Denies fever/chills/other review of symptoms. Continue with full liquid diet and IV fluid for now. Physical Exam Physical Exam: GENERAL: Alert and oriented x3. NAD, on RA. HEENT: No pallor, no icterus. partial denture plate with multiple areas of chipping, pupils equal, round and reactive to light. Oral mucosa moist, painful opening of mouthimproving NECK: No JVD, no neck masses. HEART: S1 and S2 heard. Regular rate and rhythm. No murmur, no gallop. RESPIRATORY SYSTEM: Normal AP diameter. No accessory muscle use. No wheezing, no crackles. ABDOMEN: Soft, bowel sounds present, nontender, no distention. CENTRAL NERVOUS SYSTEM: Alert and oriented x3. No facial droop. Speech is clear. Obeys simple commands. Moves extremities. EXTREMITIES: No edema, LUE in splint, left hip ecchymosis with multiple abrasions and ecchymosis on the left extremitiesimproving. Distal neurovascular status intact. Results & Data Results & Data ([facility]) Vital Signs (Past 12 Hours) Vital Signs Temp Pulse Pulse Pulse Resp BP Pulse Ox 01/09/21 11:40 36.3 C L 83 14 110/62 95 01/09/21 11:10 36.4 C L 78 15 138/80 96 01/09/21 10:40 36.5 C 83 16 01/09/21 10:26 83 16 131/68 94 01/09/21 10:16 75 16 136/69 95 01/09/21 10:06 89 15 125/81 93 01/09/21 09:56 73 14 134/71 95 01/09/21 09:46 36.6 C 87 14 138/68 97 01/09/21 09:36 90 14 140/71 96 01/09/21 09:26 93 H 13 141/75 H 97 01/09/21 09:16 36 C L 98 H 18 144/74 H 95 01/09/21 06:55 36.6 C 86 16 156/84 H 95 01/09/21 05:26 36.9 C 75 16 123/71 95 01/09/21 01:27 95 (1) Colles' fracture Encounter type: initial encounter Fracture type: closed Laterality: left Qualified Code(s): S52.532A - Colles' fracture of left radius, initial encounter for closed fracture
[2021-01-09] MEDS: CLINDAMYCIN 600 MG in DEXTROSE 5% 50 ML IV SCH ×2 (16:08→23:16)
[2021-01-09 16:51] LABS: Hematocrit (blood only) 38.5 % (37-47); Hemoglobin 12.5 g/dL (12.0-16.0)
[2021-01-09] MEDS: DOCUSATE SODIUM 100 MG CAP PO SCH (20:25)
[2021-01-09] MEDS: oxyCODONE HCL IR 5 MG TAB (IMMEDIATE RELEASE) PO PRN (22:01)
[2021-01-10] MEDS: MoRPHine SULFATE 2 MG/ML CARP IV PRN ×3 (00:47→09:30)
[2021-01-10] MEDS: ACETAMINOPHEN 500 MG TAB PO SCH ×2 (00:47→10:34)
[2021-01-10 08:21] LABS: Hematocrit (blood only) 38.7 % (37-47); Hemoglobin 12.6 g/dL (12.0-16.0); Mean Corpuscular Hemoglobin 31.2 pg (25-34); Mean Corpuscular Hgb Conc 32.6 g/dL (32-36); Mean Corpuscular Volume 95.8 fL (80-100); Mean Platelet Volume 11.8 fL (7.4-10.4); Platelet Count 264 K/uL (130-400); RDW Coefficient of Variation 14.4 % (11.5-14.5); Red Blood Count 4.04 M/uL (4.2-5.4); White Blood Count 7.67 K/uL (4.8-10.8)
[2021-01-10 08:32] LABS: BUN Creatinine Ratio 7.7 (10-20); Calcium 8.6 mg/dl (8.5-10.1); Creatinine Clr Calc Pharmacy 52.2 ml/min; Est GFR (African American) 79.3 ml/min; Est GFR (Non-African American) 68.5 ml/min; Ferritin 77.9 ng/ml (8-388); Magnesium 2.2 mg/dl (1.8-2.4); Potassium 3.6 mmol/L (3.5-5.1)
[2021-01-10 08:43] LABS: Folate (Folic Acid) 8.7 ng/ml (>5.38)
[2021-01-10] MEDS ORDERED: MULTIVITAMIN TAB PO SCH (09:00)
--- NOTE | 2021-01-10 09:12 | Orthopedic Progress Note ---
Date of Service January 10, 2021 Assessment & Plan (1) Colles' fracture: Plan: Postop day 1 status post ORIF distal radius fracture. She is doing well from my standpoint, may be discharged to home. Should see physical therapy at my office, with certified hand therapist within 3 to 5 days from discharge. Follow-up with my physician visual merchandising assistant, Kinjal Davidson PA-C at 10 to 14 days Admission and Anticipated Discharge Date Admission Date: January 06, 2021 Subjective Is postop day 1 status post ORIF left distal radius fracture. Doing well. Complains of appropriate amount of pain Physical Exam Physical Exam: Hand shows moderate swelling. She can flex and extend the digits but exam is limited secondary to discomfort Results & Data ([facility]) Vital Signs (Past 12 Hours) Vital Signs Temp Pulse Resp BP Pulse Ox 01/10/21 08:26 37.2 C 80 18 109/67 92 01/10/21 03:00 37 C 77 16 124/74 93 01/09/21 22:10 36.5 C 74 16 117/68 96 (1) Colles' fracture Encounter type: initial encounter Fracture type: closed Laterality: left Qualified Code(s): S52.532A - Colles' fracture of left radius, initial encounter for closed fracture
[2021-01-10] MEDS: ONDANSETRON INJ 2 MG/ML 2 ML VIAL IV PRN ×2 (09:41→13:12)
[2021-01-10] MEDS: LEVOTHYROXINE SODIUM 100 MCG TABLET PO SCH (10:32)
[2021-01-10] MEDS: lamoTRIgine 100 MG TAB PO SCH (10:32)
[2021-01-10] MEDS: FAMOTIDINE 20 MG TAB PO SCH (10:33)
[2021-01-10] MEDS: CHOLECALCIFEROL 1,000 UNITS 25 MCG TAB PO SCH (10:33)
[2021-01-10] MEDS: bisacodyL 5 MG TABEC PO SCH (10:33)
[2021-01-10] MEDS: DOCUSATE SODIUM 100 MG CAP PO SCH (10:38)
[2021-01-10] MEDS: oxyCODONE HCL IR 5 MG TAB (IMMEDIATE RELEASE) PO PRN (11:20)
[2021-01-10] MEDS ORDERED: POTASSIUM CHLORIDE CRTAB 20 MEQ TABCR PO STA (11:54)
--- NOTE | 2021-01-10 16:41 | Discharge Summary ---
Date of Service January 10, 2021 Admission HPI Per Admitting Provider Is a 70-year-old female with PMHx of seizure disorder on Lamictal, hyperparathyroidism, hypothyroidism, prediabetes and CKD stage III, recovering presents to the ER after an acute mechanical fall which she sustained by tripping over her left toe and fell onto her left wrist, hip and hit her left face off of the ground. She split her lip which is very painful currently. She was able to take p.o. meds at bedside and can swallow sips of water, she is agreeable to trying it clear liquid diet does not want anything harder to chew than that for right now. He denies that she had any seizure-like activity prior to this mechanical fall, last seizure was over 25 years ago and is absence like in nature, no grand mal or tonic-clonic seizure. She denies any other acute complaints currently. 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 She requests not having any addictive medications given to her. She did receive 1 dose of fentanyl in the ER due to severe pain. She does not use any devices for ambulatory assistance. Her is present with her at bedside and supports her history. Admission Exam Per Admitting Provider GENERAL: Alert and oriented x3. NAD, on RA. HEENT: No pallor, no icterus. Left lip with crusted blood, partial denture plate with multiple areas of chipping, pupils equal, round and reactive to light. Oral mucosa moist, painful opening of mouth.. NECK: No JVD, no neck masses. HEART: S1 and S2 heard. Regular rate and rhythm. No murmur, no gallop. RESPIRATORY SYSTEM: Normal AP diameter. No accessory muscle use. No wheezing, no crackles. ABDOMEN: Soft, bowel sounds present, nontender, no distention. CENTRAL NERVOUS SYSTEM: Alert and oriented x3. No facial droop. Speech is clear. Obeys simple commands. Moves extremities. EXTREMITIES: No edema, LUE in splint, left hip ecchymosis with multiple abrasions and ecchymosis on the left extremities. Principal Diagnosis Colles' fracturex left Discharge Exam GENERAL: Alert and oriented x3. NAD, on RA. HEENT: No pallor, no icterus. partial denture plate with multiple areas of chipping, pupils equal, round and reactive to light. Oral mucosa moist, painful opening of mouthimproving NECK: No JVD, no neck masses. HEART: S1 and S2 heard. Regular rate and rhythm. No murmur, no gallop. RESPIRATORY SYSTEM: Normal AP diameter. No accessory muscle use. No wheezing, no crackles. ABDOMEN: Soft, bowel sounds present, nontender, no distention. CENTRAL NERVOUS SYSTEM: Alert and oriented x3. No facial droop. Speech is cl ear. Obeys simple commands. Moves extremities. EXTREMITIES: No edema, LUE in splint, left hip ecchymosis with multiple abrasions and ecchymosis on the left extremitiesimproving. Distal neurovascu lar status intact. Discharge Data Allergies Allergy/AdvReac Type Severity Reaction Status Date / Time ether Allergy Severe BLEEDING Verified 01/06/21 16:18 Penicillins Allergy Mild UNKNOWN-HAPPENED Verified 01/06/21 16:18 A CHILD Consultations 01/06/21 17:34 ED Decision to Admit Stat 01/06/21 17:47 Consult Orthopedic Surgery Routine 01/06/21 18:19 Consult Oromaxillofacial Surgery Routine 01/08/21 15:26 Consult Anesthesiology Routine Procedures Performed Operation Date: 01/09/21 07:30 Actual Procedures p Open Reduction of Intra-articular distal fracture of left radius(Left) - Haider Avendaño MD Ordered Studies 01/06/21 15:58 CT cervical spine wo con Stat CT facial bones wo con Stat CT head/brain wo con Stat 01/08/21 07:05 CT head/brain wo con Routine 01/09/21 FL wrist LT 3V RTN Routine Hospital Course (1) Colles' fracture: 70-year-old female with PMHx of seizure disorder on Lamictal, hyperparathyroidism, hypothyroidism, prediabetes and CKD stage III presents to the ER 01/06 after an acute mechanical fall which she sustained by tripping over her left toe and fell onto her left wrist, hip and hit her left face off of the ground. Orthopedics consulted, and oral maxillofacial surgery consulted. #. Colles' fracture: #. Nondisplaced left maxillary fracture: Admitting left hand x-ray:Acute moderately displaced significantly comminuted and angulated distal left radial fracture with intra-articular extension. Admitting for CT: Acute nondisplaced left maxillary fracture which extends through the alveolar ridge of a left maxillary tooth. No additional acute facial fractures. Orthopedics on board: Status post ORIF intra-articular distal fracture of left radius 01/09. Maxillofacial surgeon consulted and advised to follow-up with dental. Patient will need dental follow-up after discharge, patient aware Patient discharged with left upper extremity in a splint, pain medication, advised to take soft diet. #. Acute anemia Hemoglobin at presentation 15.2 Hemoglobin downtrending, 11.9 yesterday, 7.5 today Likely secondary to blood loss from trauma versus hemo-dilution. EBL during or a 5 mL per Ortho note. Repeat hemoglobin was normal and stable. #. Abnormal CT head Admitting CT head: Punctate hypodensity within the cortex of the right posterior frontal lobe which could be artifact versus teeny cortical contusion. Will need to follow-up CT after [address] head confirmed early hypodensity to be artifact #. Contusion on left side of the body [face, LUE, Hip, LLE] Continue ice, warm compress, pain control with Tylenol and other supportive measures, and imaging reviewed shows no acute fracture otherwise mentioned above #. Seizure disorder: - Continue lamictal BID, LFTs WNL - No seizure-like activity - did not prompt her for mechanical fall as listed above #. Dental trauma: -Follow-up with dentist upon discharge -Encourage mouth hygiene #. Hypothyroidism: -Continue levothyroxine 100 mcg daily Disposition: Patient discharged to home with outpatient PT follow-up and orthopedic follow-up. Following instructions were communicated to the patient at the time discharge: Maintain dental follow-up after discharge as discussed. Take medications as prescribed Follow-up with your orthopedics at around 2 weeks Maintain outpatient physical therapy as instructed by orthopedics. Maintain soft diet until instructed otherwise after dental follow-up. Total Time Total Time Spent Total Time Spent (In Minutes): 40 Discharge Plan Discharge Items Patient Disposition: Home - Self-Care Reason For Visit: FALL Discharge Diagnosis: Colles' fracture x left Nondisplaced left maxillary fracture Condition on Discharge: Good Activity: Resume your previous activity Activity Comment: Regarding your left hand, follow activity protocol as instructed by ortho Non-emergency contact: Primary Care Provider Call non-emergency contact if: you have any medication questions, your symptoms worsen and your pain is not controlled Follow-up/Referrals: Gil Hamilton MD [Primary Care Provider] - Haider Avendaño MD [Physician] - (Please refer to certified hand therapist at [facility] office in [place]. Please have her seen between 2 and 5 days after surgery) Diet: Other - See Diet Comment Diet Comment: Soft diet. Addtl Attending Provider Instructions: Maintain dental follow-up after discharge as discussed. Take medications as prescribed Follow-up with your orthopedics at around 2 weeks Maintain outpatient physical therapy as instructed by orthopedics. Maintain soft diet until instructed otherwise after dental follow-up. Pending Studies at Discharge: No Stand-Alone Forms: My [facility] [employer], Smoking Cessation Medications and DC Order Prescriptions: New acetaminophen [Tylenol Extra Strength] 500 mg Tablet 1,000 mg PO Q8H 30 Days Qty: 180 RF: 0 oxycodone 5 mg Tablet 5 mg PO QID PRN (Reason: moderate pain (scale score 5-6)) 3 Days Qty: 12 RF: 0 cholecalciferol (vitamin D3) 25 mcg (1,000 unit) Capsule 1,000 unit PO QAM 30 Days Qty: 30 RF: 0 multivitamin with folic acid [Daily-Chen (with folic acid)] 400 mcg Tablet 1 tab PO QAM 30 Days Qty: 30 RF: 0 docusate sodium 100 mg Capsule 100 mg PO BID 3 Days Qty: 6 RF: 0 Continued levothyroxine 100 mcg Tablet 100 mcg PO DAILY RF: 0 calcium carbonate [Tums] 200 mg calcium (500 mg) Tablet,Chewable 200 mg PO HS RF: 0 lamotrigine [Lamictal] 100 mg Tablet 100 mg PO BID RF: 0 Probiotic 10 billion cell Capsule 1 cap PO Q OTHER DAY RF: 0 famotidine [Pepcid AC] 20 mg Tablet 20 mg PO BID RF: 0 Restasis 0.05 % Dropperette 1 drp OPB Q12H RF: 0 Discharge Orders: Discharge Order (Routine); Ordered 01/10/21 Ordered By: Ashok Nunez Admission Data Admit Date/Time: 01/06/21 17:47 Attending Provider: Ashok Nunez Admit Provider: Ashok Nunez Primary Care Provider: Gil Hamilton Other Providers: Ashok Nunez ; Mumtaz Oleary ; Renny Betts ; Unruly Dash Other Interventions: Discharge Summary Assessment (RN) Last Done: 01/10/21 13:00
--- NOTE | 2021-01-11 08:46 | Operative Report (OR) ---
PREOPERATIVE DIAGNOSIS: Left intra-articular distal radius fracture with displacement. POSTOPERATIVE DIAGNOSIS: Left intraarticular distal radius fracture with displacement. PROCEDURE: Left ORIF intra-articular distal radius fracture. SURGEON: Lobito Avendaño MD SHOT MAN: JOAQUIN Mcfarlane, who was necessary for prepping, draping, retraction, exposure, set-up , and closure. FINDINGS: Intra-articular 3-part distal radius fracture with a large dorsal piece, a separate radial styloid piece identified and nondisplaced, and dorsal comminution. INDICATIONS: A 70-year-old female who sustained the above-mentioned injury. She presents with a elizabeth aura angulated distal radius fracture as well as a head trauma and facial fractures. She presents for open reduction and internal fixation. I saw her in the preoperative holding area. We discussed risks, benefits, reasonable outcomes, and ex pectations. The risks and benefits have been discussed including, but not limited to, risk of infection, nerve in jury, stiffness, loss of motion, failure to improve, etc. Reasonable outcomes and options of treatmen t were discussed. An explanation of appropriate alternatives to the procedure that may be advantageou s were discussed and their risks and benefits, as well as the risks and benefits of not proceeding wi th treatment. I offered to answer any additional inquiries concerning the treatment involved. All the patients questions were answered. The patient is agreeable, understanding of the treatment plan and alternatives, and wishes to proceed with the treatment plan. ANESTHESIA: General. DESCRIPTION OF PROCEDURE: I made a longitudinal incision at the FCR tendon. Dissection was carried down through the skin and subcutaneous tissue. FCR tendon sheath was sharply incised and the FCR was swept in ulnar direction. The base of the sheath was incised and the FPL was swept in an ulnar dire ction. There was a large rent in the pronator. Pronator was taken off with Bovie electrocautery and the fracture was openly reduced. It did reduce appropriately and it showed good alignment on C-arm radiograph. I placed the Biomet Crosslock plate with the oblong screw first. This was adjusted for height. I placed all the screws in distally in a locking nonvariable angle fashion. I placed a tota l of 4 screws in proximally with a combination of locking and nonlocking fashion. This resulted in e xcellent alignment and stability. DRUJ was checked in pronation and supination and neutral and this was stable. Final C-arm radiograph s confirmed no evidence of intra-articular screw penetration and no evidence of extraosseous screw pe netration in the region of Connie's tubercle. There was no significant viable pronator for closure. The tourniquet was let down. Hemostasis was o btained with bipolar electrocautery. The subcutaneous layer was closed with 4-0 Monocryl running. A 3-0 Prolene subcuticular stitch was used on skin. The patient was placed in a volar splint and sent to the PACU in stable condition. Postoperative plan will be aggressive active range of motion protocol beginning on postop day 3-5. Job ID: [id number]
== END 2021-01-10 14:33 | disposition home or self-care (01) | DRG 511 ==
LOC: ED 12:40 → 3N 17:47